=== PATIENT | male | born 1940 | race Caucasian/White ===

== ENCOUNTER 2020-12-28 15:08 | Outpatient (CLI) | payer MEDICARE, BC, SELFPAY ==
--- NOTE | ~2020-12-28 | XR_ITS ---
XR hip LT min 2V 12/28/2020 15:40 Indication: Left hip pain Procedure: 3 views left hip Comparison: No prior studies for comparison. 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 No acute fracture or traumatic malalignme nt. No foreign bodies. Surrounding soft tissues are unremarkable. Impression: 1: Moderate osteoarthritis of the left hip. Reviewed, dictated and finalized at location A. Impression: 1: Moderate osteoarthritis of the left hip.
== END 2020-12-28 15:09 | disposition home or self-care (01) ==
LOC: ANHIMG 15:20
PROVIDERS: PCP Physician Assistant; Visit Provider Physician Assistant
DX: M16.12 Unilateral primary osteoarthritis, left hip (principal)
CPT/HCPCS: 73502

== ENCOUNTER 2021-04-19 18:39 | Emergency (ER) | payer MEDICARE, BC, SELFPAY ==
--- NOTE | ~2021-04-19 | XR_ITS ---
EXAMINATION: XR chest 1V portable DATE: 04/19/2021 22:03 INDICATION: Fever. TECHNIQUE: frontal view of the chest was obtained. COMPARISON: Chest radiograph dated 11/09/[address] dated 06/18/2019 FINDINGS: Hyperexpansion of the lungs. Mild streaky opacities at the lung bases, left greater than right. No pl eural effusion or pneumothorax. The cardiomediastinal silhouette is normal. There are bridging osteop hytes at multiple levels in the spine, consistent with diffuse idiopathic skeletal hyperostosis (DISH ). 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 IMPRESSION: 1. Tracheal opacities at the lung bases, left greater than right most likely combination of atelectas is and bronchiectatic changes which are better appreciated on prior CT although pneumonia not absolut ryan excludable. Reviewed, dictated and finalized at location A. IMPRESSION: 1. Tracheal opacities at the lung bases, left greater than right most likely co mbination of atelectasis and bronchiectatic changes which are better appreciate d on prior CT although pneumonia not absolutely excludable.
[2021-04-19 18:49] VITALS: BP 177/83; PULSE 105; RESP 18; TEMP 37.5; O2SAT 96
[2021-04-19 20:25] VITALS: BP 197/81; PULSE 115; RESP 18; TEMP 37.5; O2SAT 98
--- NOTE | 2021-04-19 20:26 | PC.NURSE ---
called pt. jerzy White at [phone]. asked to come back to rm 14
[2021-04-19 21:34] VITALS: BP 154/74; PULSE 104; RESP 18; O2SAT 97
--- NOTE | 2021-04-19 22:00 | ED.SKABFB ---
HPI - Skin/Abscess/Foreign Bdy General Chief complaint: Skin/Abscess/Foreign Body Stated complaint: bumps to neck Time Seen by Provider: 04/19/21 21:11 Source: patient and RN notes reviewed Mode of arrival: ambulatory Limitations: no limitations History of Present Illness HPI narrative: This is an 81 year old male who presents for evaluation of insect bites. Patient states he noticed an insect bite to his right shoulder on Monday. He also noticed a bite to his neck today. He states he felt like he had a fever so he came to ER. He denies weakness, nausea, vomiting, sore throat, runny nose, chest pain, shortness of breath, diarrhea. He reports mild itching. He denies pain at site of bite. HE has not taken anything for. Related Data Home Medications Medication Instructions Recorded Confirmed atorvastatin 04/19/21 levothyroxine [Synthroid] 04/19/21 olmesartan 04/19/21 Allergies Allergy/AdvReac Type Severity Reaction Status Date / Time codeine AdvReac Mild Other Verified 04/19/21 18:51 Review of Systems Review of Systems: All systems reviewed & are unremarkable except as noted in HPI and below Constitutional: Constitutional: Denies chills and Reports fever(s) ENT: Denies dizziness, Denies nasal congestion and Denies sore throat Cardiovascular: Cardiovascular: Denies chest pain Respiratory: Respiratory: Denies cough and Denies dyspnea Gastrointestinal: Gastrointestinal: Denies abdominal pain, Denies nausea and Denies vomiting Genitourinary: Genitourinary: Denies hematuria and Denies dysuria Musculoskeletal: Musculoskeletal: Denies myalgias Neurologic: Denies headache(s) and Denies numbness PMFSH Past Medical History Medical History (Updated 04/19/21 @ 23:40 by Alvina Lynn MD) Hyperlipidemia Hypertension Surgical History Surgical History (Updated 04/19/21 @ 23:37 by Alvina Lynn MD) History of appendectomy History of cholecystectomy Social History Social History (Updated 04/19/21 @ 23:38 by Alvina Lynn MD) Smoking status: Former smoker Exam Const: General: no acute distress and alert Orientation/consciousness: patient oriented x3 HENMT: Head: normocephalic and atraumatic Face and sinus: face symmetric Mouth: Yes Normal oral and palatal mucosa present, Yes lip normal, Yes oropharynx normal and Yes moist mucous membranes Throat: posterior oropharynx normal, tonsils normal and uvula midline Eyes: EOM: EOMs intact bilaterally Neck: Neck: normal visual inspection Chest: Chest palpation & inspection: normal inspection of the chest Resp: Effort & Inspection: normal respiratory effort and no retractions Auscultation: clear to auscultation bilaterally Cardio: Rate: regular rate Rhythm: regular rhythm GI: Inspection: normal to inspection GI Palp: Yes Soft to palpation and No Tenderness to palpation present (GI) Auscultation: normal bowel sounds Skin: General skin exam: normal color Rashes: no rashes Neuro: General: patient oriented x3, moves all extremities and CN's II-XI intact bilaterally Course Reevaluation(s) Reevaluation #1: Yan states he is ready for discharge home. He denies any complaints. I discussed xray in which they were unable to rule out pneumonia. Will place on doxycycline and manager of case management return precautions. Date: 04/19/21 Time: 23:38 Vital Signs Vital signs: Vital Signs Temperature 99.5 F 04/19/21 18:49 Pulse Rate 105 H 04/19/21 18:49 Respiratory Rate 18 04/19/21 18:49 Blood Pressure 177/83 H 04/19/21 18:49 Pulse Oximetry 96 04/19/21 18:49 Temperature 99.5 F 04/20/21 00:00 Pulse Rate 93 04/20/21 00:00 Respiratory Rate 12 04/20/21 00:00 Blood Pressure 132/62 04/20/21 00:00 Pulse Oximetry 96 04/20/21 00:00 MDM - Skin/Abscess/Foreign Bdy Differential Diagnosis Differential diagnosis: Likely viral exanthem and insect bites Lab Data Attestation: I reviewed the patient's lab results. Lab
[2021-04-19 22:06] VITALS: TEMP 38.4
[2021-04-19 22:30] LABS: Add Urine Microscopic? YES; Appearance Urine Clear (Clear); Bilirubin Urine Negative (Negative); Blood Urine 1+ (Negative); Color Urine Yellow (Yellow); Glucose Urine UA Negative (Negative); Ketones Urine Negative (Negative); Leukocyte Esterase Ur Negative LEU/UL (Negative); Mucus Urine Rare /lpf; Nitrate Urine Negative (Negative); Protein Urine Negative (Negative); Specific Grav Ur 1.017 (1.001-1.035); Urobilinogen Urine Negative mg/dL (<2.0); WBC Urine 0-3 /hpf
[2021-04-19] MEDS: ACETAMINOPHEN 500 MG TABLET 1000 MG PO (22:46)
[2021-04-19 22:49] VITALS: BP 164/84; PULSE 108; RESP 18; O2SAT 98
[2021-04-20] VITALS: BP 132/62; PULSE 93; RESP 12; TEMP 37.5; O2SAT 96
== END 2021-04-20 | disposition home or self-care (01) ==
PROVIDERS: Emergency Provider General Practice; PCP Physician Assistant
DX: S41.051A Open bite of right shoulder, initial encounter (principal); S10.96XA Insect bite of unspecified part of neck, initial encounter; R50.9 Fever, unspecified; E78.5 Hyperlipidemia, unspecified; I10 Essential (primary) hypertension; Z87.891 Personal history of nicotine dependence; W57.XXXA Bitten or stung by nonvenomous insect and other nonvenomous arthropods, initial encounter
CPT/HCPCS: 71045; 81001; 99283; A9270

== ENCOUNTER → 2023-09-21 13:52 | Outpatient (CLI) | payer MEDICARE, BC, SELFPAY ==
--- NOTE | ~2023-09-21 | XR_ITS ---
XR chest 2V DATE: 09/21/2023 14:09 INDICATION: Cough. COPD. TECHNIQUE: PA and lateral views COMPARISON: 04/19/2021 portable AP chest 06/18/2019 CT thorax FINDINGS: Normal heart size. No hilar or mediastinal enlargement. The lungs are hyperinflated but marco a ar of infiltrate or consolidation. No pleural effusion or pulmonary vascular congestion or pneumothor ax is detected. Degenerative spurring of the thoracic and lumbar spine. 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 IMPRESSION: Bilateral hyperinflation; no active cardiopulmonary disease Reviewed, dictated and finalized at location L. NCE CLERK
== END ==
PROVIDERS: PCP Physician Assistant; Visit Provider Physician Assistant
DX: R05.9 Cough, unspecified (principal); J44.9 Chronic obstructive pulmonary disease, unspecified; R91.8 Other nonspecific abnormal finding of lung field
CPT/HCPCS: 71046

== ENCOUNTER 2025-01-10 08:08 | Emergency (ER) | payer MEDICARE, BC, SELFPAY ==
--- NOTE | ~2025-01-10 | CT_ITS ---
EXAMINATION: CT abdomen pelvis w con DATE: 01/10/2025 08:51 INDICATION: Rectal obstruction TECHNIQUE: Computed tomography (CT) of the abdomen and pelvis was performed with 100 mL Omnipaque-350 intravenous contrast. Automated exposure control and iterative reconstruction technique were employe d. The dose-length product was 555.60 mGy-cm. COMPARISON: CT dated 11/16/2017 FINDINGS: Emphysema with chronic scarring and mild bronchiectatic changes at the bilateral lung bases. Heart si ze is normal. No pericardial or pleural effusion. Chronic mild intra and extrahepatic biliary ductal dilation likely related to prior cholecystectomy. Subcentimeter hepatic cyst. Spleen, pancreas and ri ght adrenal gland are normal. Unchanged 5.2 cm relatively low density peripherally calcified lesion a t the left adrenal gland, likely related to an old hematoma/seroma. Bilateral renal cysts the largest on the right measuring up to 5.0 cm. There is moderate colonic diverticulosis with a sigmoid predomi nance and without adjacent inflammatory change to suggest diverticulitis. There is however prominent edematous wall thickening of the rectum and distal half the sigmoid colon consistent with a proctoco litis. No bowel obstruction. Calcified bladder stone. Prostatomegaly which is partially obscured by d ense metallic streak artifact from bilateral total hip arthroplasties. Small bilateral fat-containing inguinal hernias. No free intraperitoneal gas or fluid. No pathologically enlarged abdominal or pelv ic lymphadenopathy. Mild to moderate lumbar and lower thoracic spondylosis. IMPRESSION: 1. Proctocolitis which could be infectious or inflammatory in etiology. 2. Emphysema with chronic bibasilar atelectasis/scarring and mild bronchiectatic changes. 3. Diverticulosis. 4. Bladder stones. 5. Prostatomegaly. Reviewed, dictated and finalized at location A. IMPRESSION: 1. Proctocolitis which could be infectious or inflammatory in etiology. 2. Emphysema with chronic bibasilar atelectasis/scarring and mild bronchiectati c changes. 3. Diverticulosis. 4. Bladder stones. 5. Prostatomegaly.
[2025-01-10 08:12] VITALS: BP 144/77; PULSE 89; RESP 18; TEMP 36.5; O2SAT 96
--- OUTSIDE RECORDS SUMMARY | 2025-01-10 08:13 | XMS_ITS | Encounter Summary ---
Author Organization [facility] Care Team Providers Care Hiv Prevention Specialist Name Role Phone Sharri Dumont Primary Care Provider [phone] Encounter Details Date Type Department Care Team (Latest Contact Info) Description 11/20/2017 Orders Only [facility]INCON[facility] ProviderChristel MD [address] [place] [id number] Social History Tobacco Use Types Packs/Day Years Used Date Smoking Tobacco: Never Assessed Sex and Gender Information Value Date Recorded Sex Assigned at Not on file Legal Sex Male 8:42 PM [employer] Gender Identity Not on file Sexual Orientation Not on file documented as of this encounter Plan of Treatment Not on file documented as of this encounter Procedures Procedure Name Priority Date/Time Associated Diagnosis Comments SCAN - PATHOLOGY 11/22/2017 12:0 0 AM CDT SCAN - LABS 11/21/2017 12:00 AM CDT documented in this encounter Results * SCAN - PATHOLOGY (11/22/2017 12:00 AM CDT) Narrative 11/22/2017 12:00 AM CDT Ordered by an unspecified provider. Historical Provider Final Res ult * SCAN - LABS (11/21/2017 12:00 AM CDT) Narrative 11/21/2017 12:00 AM CDT Ordered by an unspecified provider. Historical Provider Final Res ult documented in this encounter Visit Diagnoses Not on filedocumented in this encounter Care Teams Hiv Prevention Specialist Relationship Specialty Start Date End Date Sharri Dumont PA [address] [facility] [address] [place] [address] PCP - General Internal Medicine 12/26/18 documented as of this encounter
--- OUTSIDE RECORDS SUMMARY | 2025-01-10 08:13 | XMS_ITS | Referral Summary ---
Author Organization [address] Address [address] [place] [id number] Care Team Providers Care Tie Layer Name Role Phone Sharri Dumont Primary Care Provider [phone]- [phone] Encounters Date Type Department Care Team Description 12/04/2024 1:00 PM CDT Office Visit [address] [phone] Sharri Dumont PA Medicare annual wellness visit, subsequent (Primary Dx); Hypertension associated with diabetes (HCC); Pulmonary emphysema, unspecified emphysema type (HCC); Acquired hypothyroidism; Type 2 diabetes mellitus with hyperlipidemia (HCC); BMI 26.0-26.9,adult 11/23/2024 Results Follow-Up [address] [place] [phone] Sharri Dumont PA 11/14/2024 Orders Only [address] [place] [phone] Sharri Dumont PA Essential hypertension (Primary Dx); Hypertension associated with diabetes (HCC); Acquired hypothyroidism; Type 2 diabetes mellitus with hyperlipidemia (HCC); Other fatigue; Encounter for Medicare annual wellness exam from Last 3 Months Allergies Active Allergy Reactions Criticality Noted Date Comments Codeine Phosphate Unknown 12/31/2018 Medications finasteride (PROSCAR) 5 mg tablet Take 1 tablet (5 mg total) by mouth nightly 022 Active multivitamin with minerals (MULTIPLE VITAMIN-MINERALS ORAL) Take 1 tablet by mouth daily Active metFORMIN (GLUCOPHAGE) 500 mg tabletIndications :Controlled type 2 diabetes mellitus with complication, without long-term current use of insulin (HCC) Take 1 tablet (500 mg total) by mouth daily with breakfast 024 2024 Active budesonide-formot Etienne (SYMBICORT) 160-4.5 mcg/actuation inhalerIndication s:Pulmonary emphysema, unspecified emphysema type (HCC) USE 2 INHALATIONS TWICE A DAY. RINSE MOUTH WITH WATER AFTER USE, DO NOT SWALLOW 30.6 g 3 024 Active albuterol HFA (PROVENTIL HFA,VENTOLIN HFA,PROAIR HFA) 90 mcg/actuation inhalerIndication s:Pulmonary emphysema, unspecified emphysema type (HCC) Inhale 2 puffs every 6 (six) hours as needed for wheezing Active olmesartan (BENICAR) 40 mg tabletIndications :Essential hypertension TAKE 1 TABLET DAILY 100 tablet 1 025 Active atorvastatin (LIPITOR) 10 mg tabletIndications :Mixed hyperlipidemia TAKE 1 TABLET DAILY 100 tablet 1 025 Active levothyroxine (SYNTHROID) 75 mcg tablet TAKE 1 TABLET DAILY 90 tablet 3 025 Active olmesartan (BENICAR) 40 mg tabletIndications :Essential hypertension TAKE 1 TABLET DAILY 90 tablet 3 024 2024 Discontinued atorvastatin (LIPITOR) 10 mg tabletIndications :Mixed hyperlipidemia Take 1 tablet (10 mg total) by mouth daily 024 2024 Discontinued levothyroxine (SYNTHROID) 75 mcg tablet TAKE 1 TABLET DAILY 100 tablet 025 2024 Discontinued Active Problems Problem Noted Date Diagnosed Date Medicare annual wellness visit, subsequent 12/16 Assessment & Plan (12/16/2024 12:04 AM CDT): Encouraged healthy lifestyle, good nutrition and exercise. Encouraged Calcium and Vitamin D and weight bearing exercise for bone health. Reviewed immunizations. Reviewed age appropirate screenings. Medicare Wellness Documentation is completed within the chart Hypertension associated with diabetes 06/16/2024 Assessment & Plan (12/16/2024 12:04 AM CDT): Bp is stable/in acceptable range for any co-morbidities. Encouraged to limit sodium intake and exercise for weight control. Continue olmesartan 40 BMI 26.0-26.9,adult 06/03/2024 Assessment & Plan (12/16/2024 12:04 AM CDT): Weight/BMI is in healthy range. Continue healthy lifestyle to maintain. Assessment & Plan (06/03/2024 1:36 PM CDT): Weight/BMI is in healthy range. Continue healthy lifestyle to maintain. Cataracts, bilateral 07/07/2023 Assessment & Plan (07/07/2023 12:48 PM CDT): Patient has bilateral cataracts. Planning surgery with Dr. Rashid Fry of [facility]. Scheduled for July 20 and August 21. Patient has tolerated surgery in the past and should do fine with this procedure. Emphysema of lung 07/07/2021 Assessment & Plan (12/16/2024 12:04 AM CDT): Continue Symbicort and albuterol PRN Assessment & Plan (06/16/2024 4:16 PM CDT): Patient has COPD. Continue with Symbicort and albuterol p.r.n.. Seems to be breathing well Assessment & Plan (08/10/2023 11:09 PM [employer]): COPD is stable. Continue the Symbicort and p.r.n. albuterol Assessment & Plan (07/07/2023 12:48 PM CDT): COPD is stable. Continue with albuterol p.r.n. and Symbicort as instructed Assessment & Plan (01/17/2023 9:47 PM CDT): Continue Symbicort and albuterol p.r.n. Assessment & Plan (07/20/2022 1:54 PM [employer]): Continue Symbicort. Assessment & Plan (07/10/2021 8:36 PM CDT): Continue Symbicort. History of total right hip arthroplasty 12/29/19 Overview (12/28/2020): 2014 History of colon polyps 12/30/2018 Overview (07/10/2021): 01/2018 - Dr. Rm at [facility]. Polyp. Repeat 2020. Assessment & Plan (07/20/2022 1:53 PM [employer]): 01/2018 - Dr. Rm at [facility]. Polyp. Repeat 2020. 2020-- Dr. Rm -- will have to request from [facility]. Assessment & Plan (07/10/2021 8:34 PM CDT): 01/2018 - Dr. Rm at [facility]. Polyp. Repeat 2020. Prefers to go to Dr. Brandt at [place]. Referral is in so he can contact our office at his convenience. Assessment & Plan (01/17/2021 6:47 PM CDT): Due to repeat screening. Refer to Dr. Brandt as patients just saw him. Assessment & Plan (08/09/2020 2:04 PM [employer]): Due to repeat in 01/2021 Type 2 diabetes mellitus with hyperlipidemia Assessment & Plan (12/16/2024 12:03 AM CDT): Stressed importance of continued A1c control to minimize the long-term effects of diabetes. Bring accuchecks to office when instructed to do so. Check A1c about every 3-6 months. Take medication as prescribed. Get annual eye exam. Encouraged RAFI/Statin if able to tolerate. Encouraged weight control and encouraged diabetic diet and exercise. Encouraged patient to follow low fat/low chol diet like the Mediterranean diet. Increase good fats in the diet. Increase exercise. Monitor labs as needed. Continue atorvastatin 10 continue metformin 501 daily Assessment & Plan (06/16/2024 4:20 PM CDT): Encouraged patient to follow low fat/low chol diet like the Mediterranean diet. Increase good fats in the diet. Increase exercise. Monitor labs as needed. Continue atorvastatin 10 Stressed importance of continued A1c control to minimize the long-term effects of diabetes. Bring accuchecks to office when instructed to do so. Check A1c about every 3-6 months. Take medication as prescribed. Get annual eye exam. Encouraged RAFI/Statin if able to tolerate. Encouraged weight control and encouraged diabetic diet and exercise. Continue metformin 501 daily Assessment & Plan (08/10/2023 11:09 PM [employer]): Encouraged patient to follow low fat/low chol diet like the Mediterranean diet. Increase good fats in the diet. Increase exercise. Monitor labs as needed. Continue atorvastatin 10 Assessment & Plan (07/07/2023 12:47 PM CDT): Encouraged patient to follow low fat/low chol diet like the Mediterranean diet. Increase good fats in the diet. Increase exercise. Monitor labs as needed. Continue atorvastatin 10 daily Assessment & Plan (01/17/2023 9:47 PM CDT): Encouraged patient to follow low fat/low chol diet like the Mediterranean diet. Increase good fats in the diet. Increase exercise. Monitor labs as needed. Continue atorvastatin Assessment & Plan (07/20/2022 1:53 PM [employer]): Encouraged patient to follow low fat/low chol diet like the Mediterranean diet. Increase good fats in the diet. Increase exercise. Monitor labs as needed. Continue atorvastatin Assessment & Plan (01/31/2022 11:15 PM CDT): Encouraged patient to follow low fat/low chol diet like the Mediterranean diet. Increase good fats in the diet. Increase exercise. Monitor labs as needed. Continue atorvastatin Assessment & Plan (07/10/2021 8:34 PM CDT): Encouraged patient to follow fat/low chol diet like the Mediterranean diet. Increase good fats in the diet. Increase exercise. Monitor labs as needed. Continue atorvastatin Assessment & Plan (01/17/2021 6:46 PM CDT): Encouraged patient to follow fat/low chol diet like the Mediterranean diet. Increase good fats in the diet. Increase exercise. Monitor labs as needed. Continue statin Assessment & Plan (08/09/2020 2:03 PM [employer]): Encouraged patient to follow fat/low chol diet like the Mediterranean diet. Increase good fats in the diet. Increase exercise. Monitor labs as needed. Continue atorvastatin Assessment & Plan (03/08/2020 5:30 PM CDT): Encouraged patient to continue low fat/low chol diet. Continue exercise. Increase good fats in the diet. Monitor labs as needed. D Continue statin Assessment & Plan (06/08/2019 11:27 PM CDT): Encouraged patient to continue low fat/low chol diet. Continue exercise. Increase good fats in the diet. Monitor labs as needed. Continue statin Assessment & Plan (01/13/2019 10:47 PM CDT): Encouraged patient to continue low fat/low chol diet. Continue exercise. Increase good fats in the diet. Monitor labs as needed. Continue statin Acquired hypothyroidism 12/30/2018 Assessment & Plan (12/16/2024 12:04 AM CDT): Continue levothyroxine. 75 mcg Monitor labs. Assessment & Plan (06/16/2024 4:16 PM CDT): Continue levothyroxine 75 mcg. Monitor labs. Assessment & Plan (08/10/2023 11:09 PM [employer]): Continue levothyroxine. Monitor labs. Assessment & Plan (07/07/2023 12:48 PM CDT): TSH is stable. Continue levothyroxine 75 mcg daily Assessment & Plan (01/17/2023 9:47 PM CDT): Continue levothyroxine. Monitor labs. Assessment & Plan (07/20/2022 1:53 PM [employer]): Continue levothyroxine. Monitor labs. Assessment & Plan (01/31/2022 11:15 PM CDT): Continue levothyroxine. Monitor labs. Assessment & Plan (07/10/2021 8:35 PM CDT): Continue levothyroxine. Monitor labs. Assessment & Plan (01/17/2021 6:46 PM CDT): Continue levothyroxine. Monitor labs Assessment & Plan (08/09/2020 2:03 PM [employer]): Continue levothyroxine. Labs are stable. Assessment & Plan (03/08/2020 5:30 PM CDT): Continue levothyroxine Assessment & Plan (06/08/2019 11:27 PM CDT): Stable with levo. Check labs prior to next visit Assessment & Plan (01/13/2019 10:47 PM CDT): Continue levothyroxine Multiple lung nodules 12/30/2018 Overview (02/26/2020): 11/2017 [facility]- nodules found during ER visit. 11/2018 - [facility] - multiple (B) nodules, probably benign. Repeat 05/2019 -[facility] -- stable lung nodule Assessment & Plan (06/08/2019 11:28 PM CDT): Due to repeat CT lung nodules. Will order. Assessment & Plan (01/13/2019 10:45 PM CDT): 11/2017 CT [facility]- nodules found during ER visit. 11/2018 - [facility] - multiple (B) nodules, probably benign. Repeat 05/2019 Resolved Problems Problem Noted Date Diagnosed Date Resolved Date SOB (shortness of breath) 12/16/2024 Other emphysema 12/16/2024 12/16/2024 COPD exacerbation 10/02/2023 06/16/2024 Assessment & Plan (10/02/2023 8:25 PM [employer]): Patient had a COPD exacerbation. Required an ER visit. Was started on antibiotics and steroid pack. Symptoms have improved almost to full resolution. Continue with inhalers as needed. Follow-up if symptoms worsen or return. Will get a chest x- ray just to confirm complete resolution due to multiple illnesses in the community Medicare annual wellness visit, subsequent 08/10/2023 06/16/2024 Assessment & Plan (08/10/2023 11:12 PM [employer]): Encouraged healthy lifestyle, good nutrition and exercise. Encouraged Calcium and Vitamin D and weight bearing exercise for bone health. Reviewed immunizations. Reviewed age appropirate screenings. Medicare Wellness Documentation is completed within the chart Fatigue 08/10/2023 12/16/2024 Assessment & Plan (08/10/2023 11:12 PM [employer]): Probably multifactorial. Check labs and followup to re-evaluate BMI 29.0-29.9,adult 07/07/2023 06/03/20 Assessment & Plan (10/02/2023 8:22 PM [employer]): Weight/BMI is in healthy range. Continue healthy lifestyle to maintain. Assessment & Plan (07/24/2023 11:21 AM [employer]): Weight/BMI is in healthy range. Continue healthy lifestyle to maintain. Assessment & Plan (07/07/2023 12:48 PM CDT): Weight/BMI is in healthy range. Continue healthy lifestyle to maintain. Need for immunization against influenza 07/07/2023 06/16/2024 Assessment & Plan (07/07/2023 12:52 PM CDT): Flu vaccine updated in the office Encounter for pre-operative examination 07/07/2023 06/16/2024 Assessment & Plan (07/07/2023 12:53 PM CDT): Reviewed with patient inherent risks of surgery. Advised cataract surgeries usually go well and the cardiac risk is low. He just underwent a hip replacement last year so I suspect he will do fine. Follow-up with Ophthalmology as indicated and use drops as instructed. My staff will fax over the clearance form BMI 28.0-28.9,adult 01/17/2023 07/07/20 Assessment & Plan (01/17/2023 11:10 AM CDT): Weight/BMI is in healthy range. Continue healthy lifestyle to maintain. Respiratory tract congestion with cough 01/17/2023 07/07/2023 Assessment & Plan (01/17/2023 9:48 PM CDT): Patient has had persistent respiratory tract infection symptoms. He is still congested and hoarse. Will go ahead and start antibiotic for coverage. Augmentin sent to pharmacy. If symptoms do not improve and resolve he is to follow up for chest x-ray. He is in agreement with the plan Medicare annual wellness visit, subsequent 07/20/2022 01/17/2023 Assessment & Plan (07/20/2022 1:54 PM [employer]): Encouraged healthy lifestyle, good nutrition and exercise. Encouraged Calcium and Vitamin D and weight bearing exercise for bone health. Reviewed immunizations. Reviewed age appropirate screenings. Medicare Wellness Documentation is completed within the chart Need for vaccination 07/20/2022 023 Assessment & Plan (07/20/2022 1:54 PM [employer]): Flu vaccine updated in the office today BMI 28.0-28.9,adult 01/17/2022 01/18/20 23 Assessment & Plan (07/20/2022 1:54 PM [employer]): Weight/BMI is in healthy range. Continue healthy lifestyle to maintain. Assessment & Plan (01/17/2022 3:14 PM CDT): Weight/BMI is in healthy range. Continue healthy lifestyle to maintain. Flank pain, acute 09/07/2021 07/07/2023 Assessment & Plan (09/07/2021 7:19 PM [employer]): Will evaluate further with xrays, will notify him of results as available Advised no driving for six hours after taking muscle relaxer Advised f/u in next week if not improving, sooner if worsening BMI 27.0-27.9,adult 09/07/2021 01/18/20 22 BMI 28.0-28.9,adult 07/07/2021 01/18/20 22 Assessment & Plan (07/07/2021 2:39 PM CDT): Weight/BMI is in healthy range. Continue healthy lifestyle to maintain. Medicare annual wellness visit, subsequent 07/07/2021 01/31/2022 Assessment & Plan (07/10/2021 8:35 PM CDT): Encouraged healthy lifestyle, good nutrition and exercise. Encouraged Calcium and Vitamin D and weight bearing exercise for bone health. Reviewed immunizations. Reviewed age appropirate screenings. Medicare Wellness Documentation is completed within the chart Hip pain 01/17/2021 01/17/2023 Assessment & Plan (01/17/2021 6:45 PM CDT): Check hip xray. May need referral back to Ortho. BMI 28.0-28.9,adult 12/28/2020 07/07/20 21 Assessment & Plan (12/28/2020 10:51 AM CDT): Weight/BMI is in healthy range. Continue healthy lifestyle to maintain. Flu vaccine need 08/09/2020 07/07/2023 Assessment & Plan (07/20/2022 1:53 PM [employer]): Flu vaccine updated in the office today Assessment & Plan (07/10/2021 8:35 PM CDT): Vaccine updated in office today Assessment & Plan (08/09/2020 2:04 PM [employer]): Updated in office today Other emphysema ([facility]/HCC) 03/08/2020 Assessment & Plan (07/10/2021 8:35 PM CDT): Continue Symbicort. Assessment & Plan (01/17/2021 6:46 PM CDT): Breathing without difficulty. monitor Assessment & Plan (08/09/2020 2:03 PM [employer]): Continue Symbicort. States never has break thru sxs. Assessment & Plan (03/08/2020 5:37 PM CDT): Encouraged daily use of the Symbicort. He prefers just prn Medicare annual wellness visit, subsequent 02/26/2020 06/30/2020 Assessment & Plan (03/08/2020 5:31 PM CDT): Encouraged healthy lifestyle, good nutrition and exercise. Encouraged Calcium and Vitamin D and weight bearing exercise for bone health. Reviewed immunizations Reviewed age appropirate screenings. Documentation is on the chart Need for 23-polyvalent pneum ococcal polysaccharide vaccine 02/26/2020 06/30/2020 Assessment & Plan (03/08/2020 5:31 PM CDT): Updated in office. Murmur 02/26/2020 02/26/2020 Need for immunization against influenza 06/04/2019 03/08/2020 Assessment & Plan (06/08/2019 11:29 PM CDT): Updated in office BMI 28.0-28.9,adult 12/31/2018 12/29/19 21 Assessment & Plan (08/09/2020 2:03 PM [employer]): Weight/BMI is in healthy range. Continue healthy lifestyle to maintain. Assessment & Plan (02/26/2020 9:04 AM CDT): Obesity is unchanged. Discussed the patient's BMI. The BMI is above average. BMI management plan is completed. BMI Follow-up includes: nutrition counseling, exercise counseling and education provided. Assessment & Plan (06/08/2019 11:27 PM CDT): Weight/BMI is in healthy range. Continue healthy lifestyle to maintain. Pre-diabetes 12/30/2018 01/25/2024 Assessment & Plan (08/10/2023 11:09 PM [employer]): Pre-diabetes/hyperglycemia is a precursor to Dm. Stressed importance of working on diet (decrease your simple sugars and one carbohydrate with each meal) and increase you exercise to achieve weight loss and this will help prevent you from progressing to diabetes. Assessment & Plan (07/07/2023 12:47 PM CDT): Pre-diabetes/hyperglycemia is a precursor to Dm. Stressed importance of working on diet (decrease your simple sugars and one carbohydrate with each meal) and increase you exercise to achieve weight loss and this will help prevent you from progressing to diabetes. Assessment & Plan (01/17/2023 9:46 PM CDT): Pre-diabetes/hyperglycemia is a precursor to Dm. Stressed importance of working on diet (decrease your simple sugars and one carbohydrate with each meal) and increase you exercise to achieve weight loss and this will help prevent you from progressing to diabetes. Assessment & Plan (07/20/2022 1:53 PM [employer]): Pre-diabetes/hyperglycemia is a precursor to Dm. Stressed importance of working on diet (decrease your simple sugars and one carbohydrate with each meal) and increase you exercise to achieve weight loss and this will help prevent you from progressing to diabetes. Assessment & Plan (01/31/2022 11:14 PM CDT): Pre-diabetes/hyperglycemia is a precursor to Dm. Stressed importance of working on diet (decrease your simple sugars and one carbohydrate with each meal) and increase you exercise to achieve weight loss and this will help prevent you from progressing to diabetes. Assessment & Plan (07/10/2021 8:34 PM CDT): Pre-diabetes/hyperglycemia is a precursor to Dm. Stressed importance of working on diet (decrease your simple sugars and one carbohydrate with each meal) and increase you exercise to achieve weight loss and this will help prevent you from progressing to diabetes. Assessment & Plan (01/17/2021 6:46 PM CDT): Pre-diabetes/hyperglycemia is a precursor to Dm. Stressed importance of working on diet (decrease your simple sugars and one carbohydrate with each meal) and increase you exercise to achieve weight loss and this will help prevent you from progressing to diabetes. Assessment & Plan (08/09/2020 2:03 PM [employer]): Pre-diabetes is a precursor to Dm. Stressed importance of working on diet (decrease your simple sugars and one carbohydrate with each meal) and increase you exercise to achieve weight loss and this will help prevent you from progressing to diabetes. Assessment & Plan (03/08/2020 5:30 PM CDT): Pre-diabetes is a precursor to Dm. Stressed importance of working on diet (decrease your simple sugars and one carbohydrate with each meal) and increase you exercise to achieve weight loss and this will help prevent you from progressing to diabetes. Assessment & Plan (06/20/2019 10:20 PM CDT): Pre-diabetes is a precursor to Dm. Stressed importance of working on diet (decrease your simple sugars and one carbohydrate with each meal) and increase you exercise to achieve weight loss and this will help prevent you from progressing to diabetes. Assessment & Plan (06/08/2019 11:29 PM CDT): Pre-diabetes is a precursor to Dm. Stressed importance of working on diet (decrease your simple sugars and one carbohydrate with each meal) and increase you exercise to achieve weight loss and this will help prevent you from progressing to diabetes. Assessment & Plan (01/13/2019 10:47 PM CDT): Pre-diabetes is a precursor to Dm. Stressed importance of working on diet (decrease your simple sugars and one carbohydrate with each meal) and increase you exercise to achieve weight loss and this will help prevent you from progressing to diabetes. Essential hypertension 12/30/201812/16 Assessment & Plan (06/16/2024 4:16 PM CDT): Bp is stable/in acceptable range for any co-morbidities. Encouraged to limit sodium intake and exercise for weight control. Continue olmesartan 40 Assessment & Plan (08/10/2023 11:09 PM [employer]): Bp is stable/in acceptable range for any co-morbidities. Encouraged to limit sodium intake and exercise for weight control. Continue olmesartan 40 Assessment & Plan (07/07/2023 12:47 PM CDT): Bp is stable/in acceptable range for any co-morbidities. Encouraged to limit sodium intake and exercise for weight control. Continue olmesartan 40 daily Assessment & Plan (01/17/2023 9:47 PM CDT): Bp is stable/in acceptable range for any co-morbidities. Encouraged to limit sodium intake and exercise for weight control. Continue olmesartan Assessment & Plan (07/20/2022 1:53 PM [employer]): Bp is stable/in acceptable range for any co-morbidities. Encouraged to limit sodium intake and exercise for weight control. Continue olmesartan Assessment & Plan (01/31/2022 11:14 PM CDT): Bp is stable/in acceptable range for any co-morbidities. Encouraged to limit sodium intake and exercise for weight control. Continue olmesartan Assessment & Plan (07/10/2021 8:34 PM CDT): Bp is stable/in acceptable range for any co-morbidities. Encouraged to limit sodium intake and exercise for weight control. Continue olmesartan Assessment & Plan (01/17/2021 6:46 PM CDT): Bp is stable/in acceptable range for any co-morbidities. Encouraged to limit sodium intake and exercise for weight control. Continue olmesartan Assessment & Plan (08/09/2020 2:03 PM [employer]): Bp is stable/in acceptable range for any co-morbidities. Encouraged to limit sodium intake and exercise for weight control. Continue benicar Assessment & Plan (03/08/2020 5:30 PM CDT): Bp is stable/in acceptable range for any co-morbidities. Encouraged to limit sodium intake and exercise for weight control. Continue olemsartan Assessment & Plan (06/08/2019 11:27 PM CDT): Bp is stable/in acceptable range for any co-morbidities. Encouraged to limit sodium intake and exercise for weight control. Stable with benicar Assessment & Plan (01/13/2019 10:47 PM CDT): Bp is stable/in acceptable range for any co-morbidities. Encouraged to limit sodium intake and exercise for weight control. Immunizations Immunization Administration Dates Next Due Influenza, Quadrivalent, Hig h Dose, Preservative Free, Intrr 07/07/2023,07/20/2022,07/07/2021,07/01 Influenza, Quadrivalent, Spl it, Intramuscular 06/11/2016 Influenza, Quadrivalent, Spl it, Preservative Free, Intramuscular 06/17/2015 Influenza, Trivalent, High D ose, Split, Preservative Free, Intramuscular 06/19/2024,06/04/2019,07/03/2018,06/23,06/23/2016 Influenza, Trivalent, IM (MDV) 06/04/2014,2012,07/03/2012 Influenza, Unspecified 06/04/2019,2017,06/23/2017,06/23,06/11/2016,06/17/2015,06/04/2014 ,06/17/2013,07/03/2012 Pneumococcal Conjugate PCV 13 08/29/2018, 017 Pneumococcal Polysaccharide PPV23 02/26/2020 ZOSTER LIVE 10/29/2012 Social History Tobacco Use Types Packs/Day Years Used Date Smoking Tobacco: Former Smokeless Tobacco: Never Tobacco Cessation:Counseling Given: Not Answered Alcohol Use Standard Drinks/Week Comments Never 0 (1 standard drink = 0.6 oz pur e alcohol) AUDIT-C Answer Date Recorded Q1: How often do you have a drink containing alcohol? Never 12/04/2024 Q2: How many drinks containi ng alcohol do you have on a typical day when you are drinking? Patient does not drink Q3: How often do you have si x or more drinks on one occasion? Never 12/04/2024 PHQ-2 Answer Date Recorded PHQ-2 Total Score (If total score is 3 or more points, staff should administer the PHQ-9) 0 12/04/2024 Sex and Gender Information Value Date Recorded Sex Assigned at Not on file Legal Sex Male 8:42 PM [employer]ILRO[employer] Gender Identity Not on file Sexual Orientation Not on file Occupation Industry Job Start Date Job End Date Retired Not on file Not on file Not on file Last Filed Vital Signs Vital Sign Reading Time Taken Comments Blood Pressure 126/62 12/04/2024 1:01 PM CDT Pulse 79 12/04/2024 1:01 PM CDT Temperature 36.4 C (97.6 F) 12/04/2024 1:01 PM CDT Respiratory Rate - - Oxygen Saturation 94% 12/04/2024 1:01 PM CDT Inhaled Oxygen Concentration - - Weight 79.7 kg (175 lb 11.2 oz) 12/04/2024 1:01 PM CDT Height 172.7 cm (5' 8 ) 12/04/2024 1:01 PM CDT Body Mass Index 26.72 12/04/2024 1:01 PM CDT Plan of Treatment Not on file Procedures Procedure Name Priority Date/Time Associated Diagnosis Comments TSH Routine 11/22/2024 9:14 AM CDT Acquired hypothyroidism Other fatigue Encounter for Medicare annual wellness exam CBC WITH AUTO DIFFERENTIAL Routine 11/22/2024 9:14 AM CDT Other fatigue Encounter for Medicare annual wellness exam LIPID PANEL Routine 11/22/2024 9:14 AM CDT Type 2 diabetes mellitus with hyperlipidemia (HCC) Encounter for Medicare annual wellness exam HEMOGLOBIN A1C Routine 11/22/2024 9:14 AM CDT Type 2 diabetes mellitus with hyperlipidemia (HCC) Encounter for Medicare annual wellness exam COMPREHENSIVE METABOLIC PANEL Routine 11/22/2024 9:14 AM CDT Hypertension associated with diabetes (HCC) Type 2 diabetes mellitus with hyperlipidemia (HCC) Encounter for Medicare annual wellness exam ALBUMIN CREATININE RATIO, URINE Routine 11/22/2024 9:14 AM CDT Type 2 diabetes mellitus with hyperlipidemia (HCC) Encounter for Medicare annual wellness exam HM COLONOSCOPY Routine 03/03/2021 from Last 3 Months or Most Recently Relevant to Health Maintenance Results * (ABNORMAL) CBC with auto differential (11/22/2024 9:14 AM CDT) Pathologist [facility] WBC 5.0 3.8 - 10.8 Thousand/u L [facility] RBC, POC 3.75(L) 4.20 - 5.80 Million/uL [facility] Hgb 13.2 13.2 - 17.1 g/dL [facility] Hct 37.8(L) 38.5 - 50.0 % [facility] MCV 100.8(H) 80.0 - 100.0 fL [facility] MCH 35.2(H) 27.0 - 33.0 pg [facility] MCHC 34.9 32.0 - 36.0 g/dL [facility] Comment: For adults, a slight decrease in the calculated MCHC value (in the range of 30 to 32 g/dL) is most likely not clinically significant; however, it should be interpreted with caution in correlation with other red cell parameters and the patient's clinical condition. Rdw 12.5 11.0 - 15.0 % [facility] Platelets 165 140 - 400 Thousand/u L [facility] MPV 10.8 7.5 - 12.5 fL [facility] Neutrophils, abs 3,080 1,500 - 7,800 cells/uL [facility] Lymphocytes, abs 1,305 850 - 3,900 cells/uL [facility] Monocyte abs 375 200 - 950 cells/uL [facility] Eosinophils, abs 190 15 - 500 cells/uL [facility] Basophils, abs 50 0 - 200 cells/uL [facility] Neutrophils 61.6 % [facility] Lymphocyte pct 26.1 % [facility] Monocytes 7.5 % [facility] Eosinophils 3.8 % [facility] Basophils 1.0 % [facility] Blood 11/22/2024 9:14 AM CDT 11/22/2024 9:15 AM CDT Narrative [facility] - 11/23/2024 2:47 AM CDT FASTING:YES FASTING: YES Sharri RADER LAB BLOOD ORDERABLES Final Result [facility] [address] [place] [address] * Albumin Creatinine Ratio, Urine (11/22/2024 9:14 AM CDT) Creatinine, ur 129 20 - 320 mg/dL [facility] Microalbumin, ur 1.0 See Note: mg/dL [facility] Comment: Reference Range: Reference Range Not established Microalbumin/creat ratio 8 <30 mg/g creat [facility] Comment: The ADA defines abnormalities in albumin excretion as follows: Albuminuria Category Result (mg/g creatinine) Normal to Mildly increased <30 Moderately increased 30-299 Severely increased > OR = 300 The ADA recommends that at least two of three specimens collected within a 3-6 month period be abnormal before considering a patient to be within a diagnostic category. Urine 11/22/2024 9:14 AM CDT 11/22/2024 9:15 AM CDT Narrative [facility] - 11/23/2024 2:47 AM CDT FASTING:YES FASTING: YES Sharri RADER LAB URINE ORDERABLES Final Result [facility] [address] [address] * TSH (11/22/2024 9:14 AM CDT) TSH 2.13 0.40 - 4.50 mIU/L [facility] Blood 11/22/2024 9:14 AM CDT 11/22/2024 9:15 AM CDT Narrative [facility] - 11/23/2024 2:47 AM CDT FASTING:YES FASTING: YES us Sharri RADER LAB BLOOD ORDERABLES Final Result Performing Organization Address [facility] de Phone Number [facility] [address] [place] [address] * (ABNORMAL) Hemoglobin A1c (11/22/2024 9:14 AM CDT) Hgb A1C 6.3(H) <5.7 % of total Hgb [facility] Comment: For someone without known diabetes, a hemoglobin A1c value between 5.7% and 6.4% is consistent with prediabetes and should be confirmed with a follow-up test. For someone with known diabetes, a value <7% indicates that their diabetes is well controlled. A1c targets should be individualized based on duration of diabetes, age, comorbid conditions, and other considerations. This assay result is consistent with an increased risk of diabetes. Currently, no consensus exists regarding use of hemoglobin A1c for diagnosis of diabetes for children. Blood 11/22/2024 9:14 AM CDT 11/22/2024 9:15 AM CDT Narrative [facility] - 11/23/2024 2:47 AM CDT FASTING:YES FASTING: YES Sharri RADER LAB BLOOD ORDERABLES Final Result Performing Organization Address [facility] de Phone Number [facility] [address] [place] [address] * Lipid panel (11/22/2024 9:14 AM CDT) Cholesterol 145 <200 mg/dL [facility] HDL 50 > OR = 40 mg/dL [facility] Triglycerides 93 <150 mg/dL [facility] LDL 77 mg/dL (calc) [facility] Comment: Reference range: <100 Desirable range <100 mg/dL for primary prevention; <70 mg/dL for patients with CHD or diabetic patients with > or = 2 CHD risk factors. LDL-C is now calculated using the Maikel calculation, which is a validated novel method providing better accuracy than the Friedewald equation in the estimation of LDL-C. Justyn SAGASTUME et al. LELA. 2013;310(19): 7205-9563 (http://education.[employer]/faq/OLQ833) Chol/HDL ratio 2.9 <5.0 (calc) [facility] Non-HDL, (LDL+VLDL) 95 <130 mg/dL (calc) [facility] Comment: For patients with diabetes plus 1 major ASCVD risk factor, treating to a non-HDL-C goal of <100 mg/dL (LDL-C of <70 mg/dL) is considered a therapeutic option. Blood 11/22/2024 9:14 AM CDT 11/22/2024 9:15 AM CDT Narrative [facility] - 11/23/2024 2:47 AM CDT FASTING:YES FASTING: YES Sharri RADER LAB BLOOD ORDERABLES Final Result [facility] [address] [place] [address] * (ABNORMAL) Comprehensive metabolic panel (11/22/2024 9:14 AM CDT) [facility] Glucose 125(H) 65 - 99 mg/dL [facility] Comment: Fasting reference interval For someone without known diabetes, a glucose value between 100 and 125 mg/dL is consistent with prediabetes and should be confirmed with a follow-up test. BUN 24 7 - 25 mg/dL [facility] Creatinine 1.19 0.70 - 1.22 mg/dL [facility] eGFR 59(L) > OR = 60 mL/min/1.7 3m2 [facility] BUN/creat ratio SEE NOTE: 6 - 22 (calc) [facility] Comment: Not Reported: BUN and Creatinine are within reference range. Sodium 142 135 - 146 mmol/L [facility] Potassium, pl 4.8 3.5 - 5.3 mmol/L [facility] Chloride 107 98 - 110 mmol/L [facility] CO2 29 20 - 32 mmol/L [facility] Calcium 9.5 8.6 - 10.3 mg/dL [facility] Protein, sr 7.2 6.1 - 8.1 g/dL [facility] Albumin 4.4 3.6 - 5.1 g/dL [facility] GLOBULIN 2.8 1.9 - 3.7 g/dL (calc) [facility] Alb/glob ratio 1.6 1.0 - 2.5 (calc) [facility] Bilirubin, total 0.7 0.2 - 1.2 mg/dL [facility] Alk phos 58 35 - 144 U/L [facility] AST 17 10 - 35 U/L [facility] ALT (SGPT) 14 9 - 46 U/L [facility] Blood 11/22/2024 9:14 AM CDT 11/22/2024 9:15 AM CDT Narrative [facility] - 11/23/2024 2:47 AM CDT FASTING:YES FASTING: YES Sharri RADER LAB BLOOD ORDERABLES Final Result [facility] [address] [place] [address] * (ABNORMAL) COLONOSCOPY (03/03/2021) Ernesto Rm MD HEALTH MAINTENANCE Edited Result - Final from Last 3 Months or Most Recently Relevant to Health Maintenance Insurance MEDICARE MEDICARE [facility] OOS Care Teams Tie Layer Relationship Specialty Start Date End Date Sharri Dumont PA [address] [place] [address] PCP - General Internal Medicine 12/26/18
--- OUTSIDE RECORDS SUMMARY | 2025-01-10 08:13 | XMS_ITS | Clinical Summary ---
Author Organization [facility] Address formerly [facility] [place] [address] Care Team Providers Care Central Aisle Cashier Name Role Phone Sharri Dumont Primary Care Provider [phone] Allergies Active Allergy Reactions Criticality Noted Date Comments Codeine Nausea and Vomiting 12/31/2018 [place] like stomach was burning and vomitted Medications albuterol sulfate HFA 108 (90 Base) MCG/ACT inhalerIndicatio ns:Shortness of breath INHALE 2 PUFFS EVERY 4 HOURS NEEDED FOR WHEEZING OR SHORTNESS OF BREATH 1 Active atorvastatin (LIPITOR) 10 MG tabletIndication s:Hyperlipidemia Take 1 tablet (10 mg total) by mouth daily. Indications: High Amount of Fats in the Blood 2 Active SYNTHROID 75 MCG tabletIndication s:Hypothyroidism Take 1 tablet (75 mcg total) by mouth every morning. Indications: Underactive Thyroid 2 Active olmesartan 40 MG TabIndications:H ypertension Take 1 tablet (40 mg total) by mouth daily. Indications: High Blood Pressure Disorder 2 Active multi vitamin/minerals (THERA-M ENHANCED) tabletIndication s:Supplement Take 1 tablet by mouth daily. Indications: Supplement Active finasteride (PROSCAR) 5 MG tabletIndication s:BPH Take 1 tablet (5 mg total) by mouth nightly. Indications: BPH 2 Active budesonide-formo terol (SYMBICORT) 160-4.5 MCG/ACT inhalerIndicatio ns:COPD, surveillance Inhale 2 puffs into the lungs daily. Indications: COPD, surveillance Active Active Problems Problem Noted Date Diagnosed Date Status post total replacement of left hip 2022 Immunizations Immunization Administration Dates Next Due Fluzone High Dose - >Age 65 (Prefilled Syringe) 07/20/2022,07/07/2021,07/01/2020 Influenza (Generic) 06/04/2014,06/17/2013,2011 Influenza Adult (Generic) 06/04/2019,,06/23/2017,2015,06/11/2016,06/17/2015 Pneumococcal (Pneumovax 23) 02/26/2020 Pneumococcal (Prevnar 13) 08/29/2018,06/23/2017 Zoster (Zostavax) 60091 Unt/0.65Ml 10/29/2012 Family History Medical History Relation Comments Cancer Brother 1 hodgkins Hypertension Brother 1 Cancer Brother 2 lung Hypertension Brother 2 Cancer Brother 3 lung Hypertension Brother 3 Cancer Brother 4 lung Hypertension Brother 4 Diabetes Brother 5 Hypertension Brother 5 Hypertension Sister 1 Stroke Sister 1 Cancer Sister 2 pancreas Hypertension Sister 2 Hypertension Sister 3 Hypertension Sister 4 Relation Status Comments Brother 1 Brother 2 Brother 3 Brother 4 Brother 5 Alive Brother 6 Alive Sister 1 Sister 2 Sister 3 Alive Sister 4 Alive Social History Tobacco Use Types Packs/Day Years Used Date Smoking Tobacco: Former Cigarettes 0.1 40 1 - 1996 Passive Smoke Exposure: Past Smokeless Tobacco: Never Tobacco Cessation:Counseling Given: Not Answered Comments:Former, Quit 1996 Alcohol Use Standard Drinks/Week Comments Not Currently 0 (1 standard drink = 0.6 oz pur e alcohol) OASIS D0700: Social Isolation Answer Da te Recorded Frequency of experiencing loneliness or isolatio n Never 10/18/2022 OASIS A1250: Transportation Answer Date Recorded Lack of Transportation (Medical) No 10/18/2022 Lack of Transportation (Non-Medical) No 10/18/2022 Patient Unable or Declines to Respond No 10/18/2022 OASIS B1300: Health Literacy Answer Leandro e Recorded Frequency of needing help to read materials from doctor or pharmacy Never 10/18/2022 PHQ-2 Answer Date Recorded Patient Health Questionnaire-2 Score 0 04/10/2023 Sex and Gender Information Value Date Recorded Sex Assigned at Not on file Legal Sex Male 2:06 PM CDT Gender Identity Not on file Sexual Orientation Not on file Last Filed Vital Signs Vital Sign Reading Time Taken Comments Blood Pressure 142/63 09/14/2023 2:48 PM PARKING ENFORCEMENT MANAGER Pulse 83 09/14/2023 2:48 PM PARKING ENFORCEMENT MANAGER Temperature 36.7 C (98 F) 09/14/2023 2:48 PM PARKING ENFORCEMENT MANAGER Respiratory Rate 24 09/14/2023 2:48 PM PARKING ENFORCEMENT MANAGER Oxygen Saturation 96% 09/14/2023 2:48 PM PARKING ENFORCEMENT MANAGER Inhaled Oxygen Concentration - - Weight 83.9 kg (185 lb) 09/14/2023 2:48 PM PARKING ENFORCEMENT MANAGER Height 177.8 cm (5' 10 ) 09/14/2023 2:48 PM PARKING ENFORCEMENT MANAGER Body Mass Index 26.54 09/14/2023 2:48 PM PARKING ENFORCEMENT MANAGER Plan of Treatment Health Maintenance Due Date Last Done Comments DTaP, Tdap and Td Vaccines (1 - Tdap) 1959 Annual Medicare Wellness Visit 2003 Zoster Vaccines (2 of 3) 12/24/2012 10/29/2012 RSV Immunization or 60+ Years (1 - 1-dose 75+ series) 2013 COVID-19 Vaccine ( - season) 2024 02/09/2022, 07/06/2021, 11/10/2020, Additional history exists PHQ-2 (Physician [place]) 09/11/2024 04/10/2023 Pneumococcal Vaccine: 50+ Years Completed 02/26/2020, 08/29/2018, 06/23/2017 Meningococcal B Vaccine Aged Out No l onger eligible based on patient's age to complete this topic Meningococcal Vaccine Aged Out No susan valery eligible based on patient's age to complete this topic RSV Immunizations Under 20 Months Aged Out No longer eligible based on patient's age to complete this topic Goals Goal Patient Goal Type Associated Problems Recent Progress Patient-Stated? Author Family - family caregiver with be involved in care transitions and discharge planning Lifestyle No Bishnu Cid, RN Medical Devices Implanted Type Area Rotary Drill Operator Device Identifier Shelf Expiration Date Model / Serial / Lot Cup Acetabular Depuy 58mm - [id number] Implanted:Qty : 1 on 10/11/2022 by Steve Gomez MD at [facility] Hip Components Left: Hip DEPUY [id number] 07/11/2032 [id number] / / [id number] Liner Depuy Acetabular Altrx Neut 36x58 - [id number] Implanted:Qty : 1 on 10/11/2022 by Steve Gomez MD at [facility] Hip Components Left: Hip DEPUY [id number] 05/11/2024 [id number] / / [id number] Stem Femoral Collar Actis Duofix 6 Standard Offset Hip Sterile - [id number] Implanted:Qty : 1 on 10/11/2022 by Steve Gomez MD at [facility] Hip Components Left: Hip DEPUY [id number] 07/11/2032 [id number] / / [id number] Head Depuy Femoral Delta 36mm +5 - [id number] Implanted:Qty : 1 on 10/11/2022 by Steve Gomez MD at [facility] Hip Components Left: Hip DEPUY [id number] 08/10/2027 [id number] / / [id number] Screw Depuy Cancellous Bone 6.5mm X 25mm - [id number] Implanted:Qty : 2 on 10/11/2022 by Steve Gomez MD at [facility] Screw Left: Hip DEPUY [id number] 09/10/2032 [id number] / / [id number] Right Hip Insurance MEDICARE [facility] Advance Directives * Full Code (Latest Code Status on File) Date Activated Date Inactivated Comments 10/14/2022 10:29 AM 09/14/2023 2:39 PM * Full Code Date Activated Date Inactivated Comments 10/11/2022 11:14 AM 10/12/2022 7:20 PM Care Teams Central Aisle Cashier Relationship Specialty Start Date End Date Sharri Dumont PA [address] [place] [address] PCP - General PHYSICIAN GUSSET STITCHER 07/27/22
--- OUTSIDE RECORDS SUMMARY | 2025-01-10 08:13 | XMS_ITS | Clinical Summary ---
Author Organization [facility] [address] [facility] Address [address] [place] [address] Care Team Providers Care Plow Holder Name Role Phone Sharri Dumont Primary Care Provider [phone]- [phone] Allergies Active Allergy Reactions Criticality Noted Date [...] mg total) by mouth daily with breakfast 2024 Active budesonide-formot Etienne (SYMBICORT) 160-4.5 mcg/actuation inhalerIndication s:Pulmonary emphysema, unspecified emphysema type (HCC) USE 2 INHALATIONS TWICE A DAY. RINSE MOUTH WITH WATER AFTER USE, DO NOT SWALLOW 30.6 g 3 024 Active albuterol HFA (PROVENTIL HFA,VENTOLIN HFA,PROAIR HFA) 90 mcg/actuation inhalerIndication s:Pulmonary emphysema, unspecified emphysema type (HCC) Inhale 2 puffs every 6 (six) hours as needed for wheezing 025 Active olmesartan (BENICAR) 40 mg tabletIndications :Essential hypertension TAKE 1 TABLET DAILY 100 tablet 1 025 Active atorvastatin (LIPITOR) 10 mg tabletIndications :Mixed hyperlipidemia TAKE 1 TABLET DAILY 100 tablet 1 04/17/2 025 Active levothyroxine (SYNTHROID) 75 mcg tablet [...] Planning surgery with Dr. Rashid Fry of [facility]. Scheduled for July 20 and August 21. [...] well Assessment & Plan (08/10/2023 11:09 PM DYNAMITE PACKING MACHINE OPERATOR): COPD is stable. Continue the Symbicort and p.r.n. albuterol Assessment & Plan (07/07/2023 12:48 PM CDT): COPD is stable. Continue with albuterol p.r.n. and Symbicort as instructed Assessment & Plan (01/17/2023 9:47 PM CDT): Continue Symbicort and albuterol p.r.n. Assessment & Plan (07/20/2022 1:54 PM DYNAMITE PACKING MACHINE OPERATOR): Continue Symbicort. Assessment & Plan (07/10/2021 8:36 PM CDT): Continue Symbicort. History of total right hip arthroplasty 12/29/19 21 Overview (12/28/2020): 2014 History of colon polyps 12/30/2018 Overview (07/10/2021): 01/2018 - Dr. Rm at [facility]. Polyp. Repeat 2020. Assessment & Plan (07/20/2022 1:53 PM DYNAMITE PACKING MACHINE OPERATOR): 01/2018 - Dr. Rm at [facility]. Polyp. Repeat 2020-- Dr. Rm -- will have to request from [facility]. Assessment & Plan (07/10/2021 8:34 PM CDT): 01/2018 - Dr. Rm at [facility]. Polyp. Repeat 2020. Prefers to go to Dr. Brandt at [place]. Referral is in so he can contact our office at his convenience. Assessment & Plan (01/17/2021 6:47 PM CDT): Due to repeat screening. Refer to Dr. Brandt as patients just saw him. Assessment & Plan (08/09/2020 2:04 PM DYNAMITE PACKING MACHINE OPERATOR): Due to repeat in 01/2021 Type 2 diabetes mellitus with hyperlipidemia Assessment & Plan (12/16/2024 12:03 AM CDT): Stressed importance of continued A1c control to minimize the marine oil terminal superintendent effects of diabetes. Bring accuchecks to office [...] of continued A1c control to minimize the marine oil terminal superintendent effects of diabetes. Bring accuchecks to office when instructed to do so. Check A1c about every 3-6 months. Take medication as prescribed. Get annual eye exam. Encouraged RAFI/Statin if able to tolerate. Encouraged weight control and encouraged diabetic diet and exercise. Continue metformin 501 daily Assessment & Plan (08/10/2023 11:09 PM DYNAMITE PACKING MACHINE OPERATOR): Encouraged patient to follow low fat/low chol [...] atorvastatin Assessment & Plan (07/20/2022 1:53 PM DYNAMITE PACKING MACHINE OPERATOR): Encouraged patient to follow low fat/low chol [...] statin Assessment & Plan (08/09/2020 2:03 PM DYNAMITE PACKING MACHINE OPERATOR): Encouraged patient to follow fat/low chol diet [...] labs. Assessment & Plan (08/10/2023 11:09 PM DYNAMITE PACKING MACHINE OPERATOR): Continue levothyroxine. Monitor labs. Assessment & Plan (07/07/2023 12:48 PM CDT): TSH is stable. Continue levothyroxine 75 mcg daily Assessment & Plan (01/17/2023 9:47 PM CDT): Continue levothyroxine. Monitor labs. Assessment & Plan (07/20/2022 1:53 PM DYNAMITE PACKING MACHINE OPERATOR): Continue levothyroxine. Monitor labs. Assessment & Plan (01/31/2022 11:15 PM CDT): Continue levothyroxine. Monitor labs. Assessment & Plan (07/10/2021 8:35 PM CDT): Continue levothyroxine. Monitor labs. Assessment & Plan (01/17/2021 6:46 PM CDT): Continue levothyroxine. Monitor labs Assessment & Plan (08/09/2020 2:03 PM DYNAMITE PACKING MACHINE OPERATOR): Continue levothyroxine. Labs are stable. Assessment & [...] 06/16/2024 Assessment & Plan (10/02/2023 8:25 PM DYNAMITE PACKING MACHINE OPERATOR): Patient had a COPD exacerbation. Required an [...] 06/16/2024 Assessment & Plan (08/10/2023 11:12 PM DYNAMITE PACKING MACHINE OPERATOR): Encouraged healthy lifestyle, good nutrition and exercise. Encouraged Calcium and Vitamin D and weight bearing exercise for bone health. Reviewed immunizations. Reviewed age appropirate screenings. Medicare Wellness Documentation is completed within the chart Fatigue 08/10/2023 12/16/2024 Assessment & Plan (08/10/2023 11:12 PM DYNAMITE PACKING MACHINE OPERATOR): Probably multifactorial. Check labs and followup to re-evaluate BMI 29.0-29.9,adult 07/07/2023 06/03/20 24 Assessment & Plan (10/02/2023 8:22 PM DYNAMITE PACKING MACHINE OPERATOR): Weight/BMI is in healthy range. Continue healthy lifestyle to maintain. Assessment & Plan (07/24/2023 11:21 AM DYNAMITE PACKING MACHINE OPERATOR): Weight/BMI is in healthy range. Continue healthy [...] 01/17/2023 Assessment & Plan (07/20/2022 1:54 PM DYNAMITE PACKING MACHINE OPERATOR): Encouraged healthy lifestyle, good nutrition and exercise. Encouraged Calcium and Vitamin D and weight bearing exercise for bone health. Reviewed immunizations. Reviewed age appropirate screenings. Medicare Wellness Documentation is completed within the chart Need for vaccination 07/20/2022 Assessment & Plan (07/20/2022 1:54 PM DYNAMITE PACKING MACHINE OPERATOR): Flu vaccine updated in the office today BMI 28.0-28.9,adult 01/17/2022 01/18/20 Assessment & Plan (07/20/2022 1:54 PM DYNAMITE PACKING MACHINE OPERATOR): Weight/BMI is in healthy range. Continue healthy lifestyle to maintain. Assessment & Plan (01/17/2022 3:14 PM CDT): Weight/BMI is in healthy range. Continue healthy lifestyle to maintain. Flank pain, acute 09/07/2021 07/07/2023 Assessment & Plan (09/07/2021 7:19 PM DYNAMITE PACKING MACHINE OPERATOR): Will evaluate further with xrays, will notify [...] back to Ortho. BMI 28.0-28.9,adult 12/28/2020 07/07/20 Assessment & Plan (12/28/2020 10:51 AM CDT): Weight/BMI is in healthy range. Continue healthy lifestyle to maintain. Flu vaccine need 08/09/2020 07/07/2023 Assessment & Plan (07/20/2022 1:53 PM DYNAMITE PACKING MACHINE OPERATOR): Flu vaccine updated in the office today Assessment & Plan (07/10/2021 8:35 PM CDT): Vaccine updated in office today Assessment & Plan (08/09/2020 2:04 PM DYNAMITE PACKING MACHINE OPERATOR): Updated in office today Other emphysema (CMS/HCC) 03/08/2020 Assessment & Plan (07/10/2021 8:35 PM CDT): Continue Symbicort. Assessment & Plan (01/17/2021 6:46 PM CDT): Breathing without difficulty. monitor Assessment & Plan (08/09/2020 2:03 PM DYNAMITE PACKING MACHINE OPERATOR): Continue Symbicort. States never has break thru [...] 21 Assessment & Plan (08/09/2020 2:03 PM DYNAMITE PACKING MACHINE OPERATOR): Weight/BMI is in healthy range. Continue healthy [...] 01/25/2024 Assessment & Plan (08/10/2023 11:09 PM DYNAMITE PACKING MACHINE OPERATOR): Pre-diabetes/hyperglycemia is a precursor to Dm. Stressed [...] diabetes. Assessment & Plan (07/20/2022 1:53 PM DYNAMITE PACKING MACHINE OPERATOR): Pre-diabetes/hyperglycemia is a precursor to Dm. Stressed [...] diabetes. Assessment & Plan (08/09/2020 2:03 PM DYNAMITE PACKING MACHINE OPERATOR): Pre-diabetes is a precursor to Dm. Stressed [...] 40 Assessment & Plan (08/10/2023 11:09 PM DYNAMITE PACKING MACHINE OPERATOR): Bp is stable/in acceptable range for any [...] olmesartan Assessment & Plan (07/20/2022 1:53 PM DYNAMITE PACKING MACHINE OPERATOR): Bp is stable/in acceptable range for any [...] olmesartan Assessment & Plan (08/09/2020 2:03 PM DYNAMITE PACKING MACHINE OPERATOR): Bp is stable/in acceptable range for any [...] sodium intake and exercise for weight control. Encounters Date Type Department Care Team Description 12/04/2024 1:00 PM CDT Office Visit [facility] [address] [address] Sharri Dumont PA Medicare annual wellness visit, subsequent (Primary Dx); Hypertension associated with diabetes (HCC); Pulmonary emphysema, unspecified emphysema type (HCC); Acquired hypothyroidism; Type 2 diabetes mellitus with hyperlipidemia (HCC); BMI 26.0-26.9,adult 11/23/2024 Results Follow-Up [address] [place] [address] Sharri Dumont PA 11/14/2024 Orders Only [address] [place] [address] Sharri Dumont PA Essential hypertension (Primary Dx); Hypertension associated with diabetes (HCC); Acquired hypothyroidism; Type 2 diabetes mellitus with hyperlipidemia (HCC); Other fatigue; Encounter for Medicare annual wellness exam from Last 3 Months Immunizations Immunization Administration Dates Next Due Influenza, Quadrivalent, Hig h Dose, Preservative Free, Intrr 07/07/2023,07/20/2022,07/07/2021,07/01 Influenza, Quadrivalent, Spl it, Intramuscular 06/11/2016 Influenza, Quadrivalent, Spl it, Preservative Free, Intramuscular 06/17/2015 Influenza, Trivalent, High D ose, Split, Preservative Free, Intramuscular 06/19/2024,06/04/2019,07/03/2018,06/23,06/23/2016 Influenza, Trivalent, IM (MDV) 06/04/2014,2012,07/03/2012 Influenza, Unspecified 06/04/2019,2017,06/23/2017,06/23,06/11/2016,06/17/2015,06/04/2014 ,06/17/2013,07/03/2012 Pneumococcal Conjugate PCV 13 08/29/2018, 017 Pneumococcal Polysaccharide PPV23 02/26/2020 ZOSTER LIVE 10/29/2012 Surgical History Surgery Date Site/Laterality Comments APPENDECTOMY 09/11/1952 - 09/10/1953 TOTAL HIP ARTHROPLASTY 09/11/2013 - 09/10/2014 Right HEMORROIDECTOMY 09/11/1977 - 09/10/1978 CHOLECYSTECTOMY 09/11/2007 - 09/10/2008 COLONOSCOPY W/ BIOPSIES 09/11/2011 - 09/10/2012 EYE SURGERY Left Cataract surgery Medical History Medical History Date Comments Lung nodule HTN (hypertension) Family History Medical History Relation Name Comments Emphysema Mother Tuberculosis Mother Relation Name Status Comments Father Mother Social History Tobacco Use Types Packs/Day Years [...] on file Legal Sex Male 8:42 PM DYNAMITE PACKING MACHINE OPERATOR Gender Identity Not on file Sexual Orientation Not on file Occupation Industry Job Start Date Job End Date Retired Not on file Not on file Not on file Obstetrics History Last Filed Vital Signs Vital Sign Reading [...] 12/04/2024 1:01 PM CDT Plan of Treatment Health Maintenance Due Date Last Done Comments Dilated Eye Exam 1940 Foot Exam 1940 DTaP/Tdap/Td Vaccine (1 - Tdap) 1949 Hepatitis B Screening 02/18[birth year]1956 Zoster Vaccine (2 of 3) 12/24/2012 10/29/2012 Covid-19 Vaccine (5 - 2024- 5 season) 2024 02/09/2022, 07/06/2021, 11/10/2020, Additional history exists Hemoglobin A1C 05/25/2025 11/22/2024, 05/13, 01/15/2024, Additional history exists Albumin Creatinine Ratio, Urine 11/22/2025 , 06/04/2024 Lipid Panel 11/22/2025 11/22/2024, 05/0 02/2024, 01/09/2023, Additional history exists eGFR 11/22/2025 11/22/2024, 05/0 02/2024, 01/09/2023, Additional history exists Depression Screening 12/04/2025 12/04/2024, 06/03/2024, 09/21/2023, Additional history exists Fall Risk Assessment 12/04/2025 12/04/2024, 09/21/2023, 07/24/2023, Additional history exists Well Visit 65+ 12/04/2025 12/04/2024, 07/12, 07/20/2022, Additional history exists Colon Cancer Screening-Colonoscopy 03/03/20262020, 01/26/2018 Pneumococcal vaccine 65+ Completed 020, 08/29/2018, 06/23/2017 Influenza Vaccine Completed 06/19/2024, , 07/20/2022, Additional history exists Procedures Procedure Name Priority Date/Time Associated Diagnosis [...] with auto differential (11/22/2024 9:14 AM CDT) WBC 5.0 3.8 - 10.8 Thousand/u L [...] LAB BLOOD ORDERABLES Final Result [facility] [address] [place] [address] * Albumin Creatinine Ratio, Urine (11/22/2024 9:14 [...] 2:47 AM CDT FASTING:YES FASTING: YES Sharri RAEDR LAB URINE ORDERABLES Final Result [facility] [address] [address] * TSH (11/22/2024 9:14 AM CDT) TSH 2.13 0.40 - 4.50 mIU/L [facility] Blood 11/22/2024 9:14 AM CDT 11/22/2024 9:15 AM CDT Narrative [facility] - 11/23/2024 2:47 AM CDT FASTING:YES FASTING: YES Sharri RADER LAB BLOOD ORDERABLES Final Result Performing Organization Address [facility] de Phone Number [facility] [address] [place] [address] * (ABNORMAL) Hemoglobin A1c (11/22/2024 9:14 AM CDT) Hgb A1C 6.3(H) <5.7 % of total Hgb [facility] Comment: For someone without known diabetes, a [...] BLOOD ORDERABLES Final Result Performing Organization Address [facility] Co de Phone Number [facility] [address] [place] [address] * Lipid panel (11/22/2024 9:14 AM CDT) Cholesterol 145 <200 mg/dL [facility] HDL 50 > OR = 40 mg/dL [facility] Triglycerides 93 <150 mg/dL [facility] LDL 77 mg/dL (calc) [facility] Comment: Reference range: <100 Desirable range <100 mg/dL for primary prevention; <70 mg/dL for patients with CHD or diabetic patients with > or = 2 CHD risk factors. LDL-C is now calculated using the Maikel calculation, which is a validated novel method providing better accuracy than the Friedewald equation in the estimation of LDL-C. Justyn SAGASTUME et al. LELA. 2013;310(19): 3124-4553 (http://education.WoofRadar/faq/NTH022) Chol/HDL ratio 2.9 <5.0 (calc) [facility] Non-HDL, (LDL+VLDL) 95 <130 mg/dL (calc) [facility] Comment: For patients with diabetes plus 1 major ASCVD risk factor, treating to a non-HDL-C goal of <100 mg/dL (LDL-C of <70 mg/dL) is considered a therapeutic option. Blood 11/22/2024 9:14 AM CDT 11/22/2024 9:15 AM CDT Narrative [facility] - 11/23/2024 2:47 AM CDT FASTING:YES FASTING: YES Sharri RADER LAB BLOOD ORDERABLES Final Result [facility] [address] [place] [address] * (ABNORMAL) Comprehensive metabolic panel (11/22/2024 9:14 AM CDT) [facility] Glucose 125(H) 65 - 99 mg/dL [facility] Comment: Fasting reference interval For someone without known diabetes, a glucose value between 100 and 125 mg/dL is consistent with prediabetes and should be confirmed with a follow-up test. BUN 24 7 - 25 mg/dL [facility] Creatinine 1.19 0.70 - 1.22 mg/dL [facility] eGFR 59(L) > OR = 60 mL/min/1.7 3m2 [facility] BUN/creat ratio SEE NOTE: 6 - 22 (calc) [facility] Comment: Not Reported: BUN and Creatinine are within reference range. Sodium 142 135 - 146 mmol/L [facility] Potassium, pl 4.8 3.5 - 5.3 mmol/L [facility] Chloride 107 98 - 110 mmol/L [facility] CO2 29 20 - 32 mmol/L [facility] Calcium 9.5 8.6 - 10.3 mg/dL [facility] Protein, sr 7.2 6.1 - 8.1 g/dL [facility] Albumin 4.4 3.6 - 5.1 g/dL [facility] GLOBULIN 2.8 1.9 - 3.7 g/dL (calc) [facility] Alb/glob ratio 1.6 1.0 - 2.5 (calc) [facility] Bilirubin, total 0.7 0.2 - 1.2 mg/dL [facility] Alk phos 58 35 - 144 U/L [facility] AST 17 10 - 35 U/L [facility] ALT (SGPT) 14 9 - 46 U/L [facility] Blood 11/22/2024 9:14 AM CDT 11/22/2024 9:15 AM CDT Narrative [facility] - 11/23/2024 2:47 AM CDT FASTING:YES FASTING: YES Sharri RADER LAB BLOOD ORDERABLES Final Result [facility] [address] [place] [address] * (ABNORMAL) COLONOSCOPY (03/03/2021) us Ernesto Rm MD HEALTH MAINTENANCE Edited Result - Final from Last 3 Months or Most Recently Relevant to Health Maintenance Insurance MEDICARE MEDICARE [facility] Care Teams Plow Holder Relationship Specialty Start Date End Date Sharri Dumont PA [address] [place] [address] PCP - General Internal Medicine 12/26/18
--- OUTSIDE RECORDS SUMMARY | 2025-01-10 08:13 | XMS_ITS | Continuity of Care Document ---
Author Organization [facility]erg[facility] with [facility] Address [address] [place] [address] Phone Care Team Providers Care Vegetable Cook Name Role Phone Feroz Mehta Unavailable Unavailable Procedures Procedure Date Eye Exam & Treatment Refraction Eye Exam, New Patient No Script Refraction Advance Directives Directive Yes / No Effective Date File Name No Information Encounters Encounter Description Practice Location Reason(s) For Visit Diagnoses Date Provider Providers Copied on Encounter [facility], [address], [place], [place], [id number], [place] tel:[phone] [facility] No Information 6-201 0 Janine Redman. [address] [facility] , [address], [place], [place], [facility], [place]. tel:[phone] [facility], [address] [place] [address] [address], [place], [place], [id number], [place] tel:[phone] [facility] No Information 7[address] [facility] [address], [place], [address], [place]. tel:[phone] Family History Family Member Type Diagnosis Age At Onset No Information Payers Payer name Insurance type Covered libertarian ID Authoriza tion(s) Medicare [facility] [id number] [facility] [id number] Social History Type Description Quantity Date Captured Comments Sex Male Smoking Status No Information Chief Complaint And Reason For Visit No Information Reason For Referral Reason For Referral No Information History Of Present Illness Encounter Date Complaint History Of Prese nt Illness No Information Functional Status Date Functional Assessmen t No Information Instructions Date Instruction Additional Infor mation No Information Assessments Type Assessment Date No Information Patient Care Teams Name Effective Dates (start - stop) Status Members No Information
--- OUTSIDE RECORDS SUMMARY | 2025-01-10 08:13 | XMS_ITS | Encounter Summary ---
Author Organization [facility] Care Team Providers Care Kinesiologist Name Role Phone Sharri Dumont Primary Care Provider [phone] Encounter Details Date Type Department Care Team (Latest Contact Info) Description 01/19/2018 Orders Only [facility] Provider, MD Christel [address] [place] [address] Social History Tobacco Use Types Packs/Day Years Used Date Smoking Tobacco: Never Assessed Sex and Gender Information Value Date Recorded Sex Assigned at Not on file Legal Sex Male 8:42 PM WINDING INSPECTOR Gender Identity Not on file Sexual Orientation Not on file documented as of this encounter Plan of Treatment Not on file documented as of this encounter Procedures Procedure Name Priority Date/Time Associated Diagnosis Comments COLONOSCOPY - SCAN 09/19/2018 12 :00 AM WINDING INSPECTOR documented in this encounter Results * COLONOSCOPY - SCAN (09/19/2018 12:00 AM WINDING INSPECTOR) Narrative 09/19/2018 12:00 AM WINDING INSPECTOR Ordered by an unspecified provider. Historical Provider Final Res ult documented in this encounter Visit Diagnoses Not on filedocumented in this encounter Care Teams Kinesiologist Relationship Specialty Start Date End Date Sharri Dumont PA [address] [place] [address] PCP - General Internal Medicine 12/26/18 documented as of this encounter
--- OUTSIDE RECORDS SUMMARY | 2025-01-10 08:14 | XMS_ITS | CONTINUITY OF CARE DOCUMENT ---
Author Name shruti bahena Address Unknown Organization [facility] Address [address] [place] [address] Phone [phone] Care Team Providers Care Primary School Teacher Name Role Phone DEMETRI KEENE MD Unavailable [phone] INSURANCE PROVIDERS Payer name Policy type / Coverage type [place] red libertarian [place] MEDICARE Medicare [id number] [facility] [employer] [id number]
--- OUTSIDE RECORDS SUMMARY | 2025-01-10 08:14 | XMS_ITS | Encounter Summary ---
Author Organization [facility] Address [address] [place] [address] Care Team Providers Care Poultry Hatchery Laborer Name Role Phone Sharri Dumont Primary Care Provider [phone]- [phone] Encounter Details Date Type Department Care Team (Late st Contact Info) Description 11/23/2024 Results Follow-Up [facility] Family Medicine [address] [place] [address] Sharri Dumont PA [address] [place] [address] Social History Tobacco Use Types Packs/Day Years Used Date Smoking Tobacco: Former Smokeless Tobacco: Never Alcohol Use Standard Drinks/Week Comments Never 0 (1 standard drink = 0.6 oz pur e alcohol) AUDIT-C Answer Date Recorded Q1: How often do you have a drink containing alc ohol? Never 09/21/2023 Average Number of Drinks Not on file 024 Q3: How often do you have si x or more drinks on one occasion? Never 09/21/2023 PHQ-2 Answer Date Recorded PHQ-2 Total Score (If total score is 3 or more points, staff should administer the PHQ-9) 0 06/03/2024 Sex and Gender Information Value Date Recorded Sex Assigned at Not on file Legal Sex Male 8:42 PM CODING QUALITY ANALYST Gender Identity Not on file Sexual Orientation Not on file Occupation Industry Job Start Date Job End Date Retired Not on file Not on file Not on file documented as of this encounter Plan of Treatment Not on file documented as of this encounter Visit Diagnoses Not on filedocumented in this encounter Care Teams Poultry Hatchery Laborer Relationship Specialty Start Date End Date Sharri Dumont PA [address] [facility] [address] [place] [address] PCP - General Internal Medicine 12/26/18 documented as of this encounter
--- NOTE | 2025-01-10 08:18 | ED.ABDPAIN ---
HPI - Abdominal Pain General Chief Complaint: Abdominal Pain Stated Complaint: constipation Time Seen by Provider: 01/10/25 08:16 History of Present Illness HPI narrative: Pt says he feel like he has fecal impaction in rectum. Pt feels stool there but can't get it out. Pt had large BM yesterday. Pt denies abdominal pain. Pt dug out feces himself yesterday. Related Data Home Medications ?Medication ?Instructions ?Recorded ?Confirmed ?Last Taken ?Type atorvastatin 10 mg tablet 04/19/21 Unknown History levothyroxine 50 mcg tablet 04/19/21 Unknown History (Synthroid) olmesartan 40 mg tablet 04/19/21 Unknown History Allergies Allergy/AdvReac Type Severity Reaction Status Date / Time codeine AdvReac Mild Other Verified 04/19/21 18:51 Review of Systems Review of Systems: All systems reviewed & are unremarkable except as noted in HPI and below PMFSH Past Medical History Medical History (Updated 01/10/25 @ 09:30 by Haroon Pierre III, DO) Hyperlipidemia Hypertension Surgical History Surgical History (Updated 04/19/21 @ 23:37 by Alvina Lynn MD) History of cholecystectomy History of appendectomy Social History Social History (Updated 04/19/21 @ 23:38 by Alvina Lynn MD) Smoking status: Former smoker Exam Const: General: healthy appearing and no acute distress Nutritional Appearance: well nourished Orientation/consciousness: patient oriented x3 Limitations: no limitations Resp: Effort & Inspection: normal respiratory effort Auscultation: clear to auscultation bilaterally Cardio: Rate: regular rate Rhythm: regular rhythm GI: GI Palp: Yes Soft to palpation and No Tenderness to palpation present (GI) Auscultation: normal bowel sounds Rectal Exam: No fecal impaction and hemorrhoids Other: no stool in rectum, Skin: General skin exam: normal color Rashes: no rashes Wounds: no wounds Neuro: General: patient oriented x3, moves all extremities and no focal motor deficits Speech: normal speech Extrem: General: normal to inspection and no clubbing, cyanosis or edema Psych: Mental Status: mental status grossly normal Affect: normal affect Attitude: cooperative Course Vital Signs Vital signs: Vital Signs Temperature 97.7 F 01/10/25 08:12 Pulse Rate 89 01/10/25 08:12 Respiratory Rate 18 01/10/25 08:12 Blood Pressure 144/77 H 01/10/25 08:12 Pulse Oximetry 96 01/10/25 08:12 Oxygen Delivery Room Air 01/10/25 08:12 Temperature 97.7 F 01/10/25 08:12 Pulse Rate 89 01/10/25 08:12 Respiratory Rate 18 01/10/25 08:12 Blood Pressure 144/77 H 01/10/25 08:12 Pulse Oximetry 96 01/10/25 08:12 Oxygen Delivery Room Air 01/10/25 08:12 MDM - Abdominal Pain MDM Narrative Medical decision making narrative: pt has feeling of rectal obstruction but no fecal impaction noted on exam. will get labs and CT abd pelvis to rule out tumor or mass. labd unremarkable. proctocolitis on ct. will put on cipro and prednisone Lab Data 01/10/25 08:32 01/10/25 08:43 Labs: Lab Results 01/10/25 01/10/25 Range/Units 08:32 08:43 WBC 7.8 (4.5-10.0) K/mm3 RBC 3.68 L (4.6-6.20) M/mm3 Hgb 11.6 L (14.0-18.0) g/dL Hct 36.1 L (42.0-52.0) % MCV 98.1 (80-100) fl MCH 31.5 (26-34) pg MCHC 32.1 (32-36) g/dl RDW 13.3 (11.5-14.5) % Plt Count 175 (150-375) k/mm3 MPV 10.0 (7.4-10.4) fl Immature Gran % (Auto) 0.4 (0-0.5) % Neut % (Auto) 71.6 (45.5-73.1) % Lymph % (Auto) 16.8 L (18.3-44.2) % Carolina % (Auto) 9.4 H (2.6-8.5) % Eos % (Auto) 1.4 (0-4.4) % Baso % (Auto) 0.4 (0.2-1.2) % Lymph # (Auto) 1.32 (0.9-3.2) K/mm3 Carolina # (Auto) 0.7 H (0.1-0.6) K/mm3 Eos # (Auto) 0.1 (0-0.3) K/mm3 Baso # (Auto) 0.0 (0.0-0.1) K/mm3 Abs Immat Gran (auto) 0.03 (0.00-0.031) K/mm3 Absolute Neuts (auto) 5.6 (1.3-6.7) K/mm3 Absolute Nucleated RBC 0.000 (0.0-0.012) K/mm3 Nucleated RBC % 0.0 (0.0-0.2) % PT 14.1 (11.1-14.7) Seconds INR 1.1 APTT 28.3 (22.3-36.8) Seconds Sodium 138 (137-145) mmol/L Potassium 4.2 (3.4-5.0) mmol/L Chloride 105 (98-107) mmol/L Carbon Dioxide 25 (22-30) mmol/L Anion Gap 8 (4-12) mmol/L BUN 22 H (9-20) mg/dL Creatinine 1.21 1.40 (0.7-1.3) mg/dL Estim Creat Clear Calc 40 35 ml/min Estimated GFR 57 L 48 L (59 - ) Glucose 146 H (65-110) mg/dL Calcium 9.4 (8.4-10.2) mg/dL Total Bilirubin 1.1 (0.2-1.3) mg/dL AST 26 (17-59) U/L ALT 20 (6-50) U/L Alkaline Phosphatase 58 (38-126) U/L Total Protein 7.0 (6.3-8.2) g/dL Albumin 4.3 (3.5-5.1) g/dL Lipase 87 (23-300) U/L Imaging Data Radiologist's impression: ITS Impressions Abdomen/Pelvis CT 01/10/25 08:57 IMPRESSION: 1. Proctocolitis which could be infectious or inflammatory in etiology. 2. Emphysema with chronic bibasilar atelectasis/scarring and mild bronchiectatic changes. 3. Diverticulosis. 4. Bladder stones. 5. Prostatomegaly. Discharge Plan Discharge Clinical Impression: Proctocolitis Patient Disposition: Home Condition: Stable Instructions: Antibiotic Form, Proctitis (ED) Patient Language: Tamazight Prescriptions: New ciprofloxacin HCl [Cipro] 500 mg tablet 500 mg PO Q12H Qty: 20 0RF prednisone 50 mg tablet 50 mg PO DAILY Qty: 5 0RF No Action atorvastatin 10 mg tablet levothyroxine [Synthroid] 50 mcg tablet olmesartan 40 mg tablet doxycycline monohydrate 100 mg tablet 100 mg PO BID Qty: 14 0RF Follow-up/Referrals: Julia,PRASANTH Harrell [Primary Care Provider] -
[2025-01-10 08:43] LABS: Estimated CRCL calculation 35 ml/min; Estimated Glomerular Filt Rate 48
[2025-01-10 08:46] LABS: Alanine Aminotransferase 20 U/L (6-50); Albumin Level 4.3 g/dL (3.5-5.1); Alkaline Phosphatase 58 U/L (38-126); Anion Gap 8 mmol/L (4-12); Aspartate Amino Transferase 26 U/L (17-59); Basophils Percent Auto 0.4 % (0.2-1.2); Bilirubin,Total 1.1 mg/dL (0.2-1.3); Blood Urea Nitrogen 22 mg/dL (9-20); Calcium 9.4 mg/dL (8.4-10.2); Carbon Dioxide 25 mmol/L (22-30); Chloride 105 mmol/L (98-107); Eosinophils Absolute Auto 0.1 K/mm3 (0-0.3); Eosinophils Percent Auto 1.4 % (0-4.4); Estimated CRCL calculation 40 ml/min; Estimated Glomerular Filt Rate 57; Glucose 146 mg/dL (65-110); Hematocrit 36.1 % (42.0-52.0); Hemoglobin 11.6 g/dL (14.0-18.0); INR 1.1; Immature Granulocyte Absolute 0.03 K/mm3 (0.00-0.031); Immature Granulocyte Percent A 0.4 % (0-0.5); Lipase 87 U/L (23-300); Lymphocytes Absolute Auto 1.32 K/mm3 (0.9-3.2); Lymphocytes Percent Auto 16.8 % (18.3-44.2); Mean Corpuscular HGB Conc 32.1 g/dl (32-36); Mean Corpuscular Hemoglobin 31.5 pg (26-34); Mean Corpuscular Volume 98.1 fl (80-100); Monocytes Absolute Auto 0.7 K/mm3 (0.1-0.6); Monocytes Percent Auto 9.4 % (2.6-8.5); Neutrophils Absolute Auto 5.6 K/mm3 (1.3-6.7); Neutrophils Percent Auto 71.6 % (45.5-73.1); Platelet Count Result 175 k/mm3 (150-375); Potassium 4.2 mmol/L (3.4-5.0); Prothrombin Time 14.1 Seconds (11.1-14.7); Red Blood Count 3.68 M/mm3 (4.6-6.20); Red Cell Distribution Width 13.3 % (11.5-14.5); Sodium 138 mmol/L (137-145); White Blood Count 7.8 K/mm3 (4.5-10.0)
[2025-01-10 08:47] LABS: Partial Thromboplastin Time 28.3 Seconds (22.3-36.8)
--- OUTSIDE RECORDS SUMMARY | 2025-01-11 11:14 | XMS_ITS | Encounter Summary ---
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
--- OUTSIDE RECORDS SUMMARY | 2025-01-11 11:14 | XMS_ITS | Clinical Summary ---
Author Organization [facility] Address [facility] [place] [address] Care Team Providers Care Sr. Vendor Management Associate Name Role Phone Sharri Dumont Primary Care Provider [phone] Allergies Active Allergy Reactions Criticality Noted Date Comments Codeine Nausea and Vomiting 12/31/2018 Rufe like stomach was burning and vomitted Medications [...] 02/26/2020 Pneumococcal (Prevnar 13) 08/29/2018,06/23/2017 Zoster (Zostavax) 89108 Unt/0.65Ml 10/29/2012 Family History Medical History Relation [...] Comments Blood Pressure 142/63 09/14/2023 2:48 PM ALTERATION TAILOR Pulse 83 09/14/2023 2:48 PM ALTERATION TAILOR Temperature 36.7 C (98 F) 09/14/2023 2:48 PM ALTERATION TAILOR Respiratory Rate 24 09/14/2023 2:48 PM ALTERATION TAILOR Oxygen Saturation 96% 09/14/2023 2:48 PM ALTERATION TAILOR Inhaled Oxygen Concentration - - Weight 83.9 kg (185 lb) 09/14/2023 2:48 PM ALTERATION TAILOR Height 177.8 cm (5' 10 ) 09/14/2023 2:48 PM ALTERATION TAILOR Body Mass Index 26.54 09/14/2023 2:48 PM ALTERATION TAILOR Plan of Treatment Health Maintenance Due Date Last Done Comments DTaP, Tdap and Td Vaccines (1 - Tdap) 1959 Annual Medicare Wellness Visit 2003 Zoster Vaccines (2 of 3) 12/24/2012 10/29/2012 RSV Immunization or 60+ Years (1 - 1-dose 75+ series) 2013 COVID-19 Vaccine ( - season) 2024 02/09/2022, 07/06/2021, 11/10/2020, Additional history exists PHQ-2 (Physician [place]) 09/11/2024 04/10/2023 Pneumococcal Vaccine: 50+ Years Completed [...] Cid, RN Medical Devices Implanted Type Area Bedspread Inspector Device Identifier Shelf Expiration Date Model / Serial / Lot Cup Acetabular Depuy 58mm - [id number] Implanted:Qty : 1 on 10/11/2022 by Steve Gomez MD at [facility] Hip Components Left: Hip DEPUY [id number] 07/11/2032 [id number] / / [id number] Liner Depuy Acetabular Altrx Neut 36x58 - [id number] Implanted:Qty : 1 on 10/11/2022 by Steve Gomez MD at [facility] Hip Components Left: Hip DEPUY [id number] 05/11/2024 [id number] / / [id number] Stem Femoral Collar Actis Duofix 6 Standard Offset Hip Sterile - [id number] Implanted:Qty : 1 on 10/11/2022 by Steve Gomez MD at [facility] Hip Components Left: Hip DEPUY [id number] 07/11/2032 [id number] / / [id number] Head Depuy Femoral Delta 36mm +5 - [id number] Implanted:Qty : 1 on 10/11/2022 by Steve Gomez MD at [facility] Hip Components Left: Hip DEPUY [id number] 08/10/2027 [id number] / / [id number] Screw Depuy Cancellous Bone 6.5mm X 25mm - [id number] Implanted:Qty : 2 on 10/11/2022 by Steve Gomez MD at [facility] Screw Left: Hip DEPUY [id number] 09/10/2032 [id number] / / [id number] Right Hip Insurance MEDICARE [facility] Advance Directives * Full Code (Latest Code Status on File) Date Activated Date Inactivated Comments 10/14/2022 10:29 AM 09/14/2023 2:39 PM * Full Code Date Activated Date Inactivated Comments 10/11/2022 11:14 AM 10/12/2022 7:20 PM Care Teams Sr. Vendor Management Associate Relationship Specialty Start Date End Date Sharri Dumont PA [address] [place] [address] PCP - General PHYSICIAN EQUIPMENT APPLICATION SPECIALIST 07/27/22
--- OUTSIDE RECORDS SUMMARY | 2025-01-11 11:14 | XMS_ITS | Clinical Summary ---
Author Organization [facility] [place] [address] [facility] Address [address] [place] [address] Care Team Providers Care Manufacturing Engineering Manager Name Role Phone Sharri Dumont Primary Care Provider [phone] Allergies Active Allergy Reactions Criticality Noted Date [...] Planning surgery with Dr. Rashid [facility] of [facility]. Scheduled for July 20 and August 21. [...] well Assessment & Plan (08/10/2023 11:09 PM SPEED READING TEACHER): COPD is stable. Continue the Symbicort and p.r.n. albuterol Assessment & Plan (07/07/2023 12:48 PM CDT): COPD is stable. Continue with albuterol p.r.n. and Symbicort as instructed Assessment & Plan (01/17/2023 9:47 PM CDT): Continue Symbicort and albuterol p.r.n. Assessment & Plan (07/20/2022 1:54 PM SPEED READING TEACHER): Continue Symbicort. Assessment & Plan (07/10/2021 8:36 PM CDT): Continue Symbicort. History of total right hip arthroplasty 12/29/19 21 Overview (12/28/2020): 2014 History of colon polyps 12/30/2018 Overview (07/10/2021): 01/2018 - Dr. Rm at [facility]. Polyp. Repeat 2020. Assessment & Plan (07/20/2022 1:53 PM SPEED READING TEACHER): 01/2018 - Dr. Rm at [facility]. Polyp. Repeat 2020-- Dr. Rm -- will have to request from [facility]. Assessment & Plan (07/10/2021 8:34 PM CDT): 01/2018 - Dr. Rm at [facility]. Polyp. Repeat 2020. Prefers to go to Dr. Brandt at [place]. Referral is in so he can contact our office at his convenience. Assessment & Plan (01/17/2021 6:47 PM CDT): Due to repeat screening. Refer to Dr. Brandt as patients just saw him. Assessment & Plan (08/09/2020 2:04 PM SPEED READING TEACHER): Due to repeat in 01/2021 Type 2 diabetes mellitus with hyperlipidemia Assessment & Plan (12/16/2024 12:03 AM CDT): Stressed importance of continued A1c control to minimize the rat exterminator effects of diabetes. Bring accuchecks to office [...] of continued A1c control to minimize the rat exterminator effects of diabetes. Bring accuchecks to office when instructed to do so. Check A1c about every 3-6 months. Take medication as prescribed. Get annual eye exam. Encouraged RAFI/Statin if able to tolerate. Encouraged weight control and encouraged diabetic diet and exercise. Continue metformin 501 daily Assessment & Plan (08/10/2023 11:09 PM SPEED READING TEACHER): Encouraged patient to follow low fat/low chol [...] atorvastatin Assessment & Plan (07/20/2022 1:53 PM SPEED READING TEACHER): Encouraged patient to follow low fat/low chol [...] statin Assessment & Plan (08/09/2020 2:03 PM SPEED READING TEACHER): Encouraged patient to follow fat/low chol diet [...] labs. Assessment & Plan (08/10/2023 11:09 PM SPEED READING TEACHER): Continue levothyroxine. Monitor labs. Assessment & Plan (07/07/2023 12:48 PM CDT): TSH is stable. Continue levothyroxine 75 mcg daily Assessment & Plan (01/17/2023 9:47 PM CDT): Continue levothyroxine. Monitor labs. Assessment & Plan (07/20/2022 1:53 PM SPEED READING TEACHER): Continue levothyroxine. Monitor labs. Assessment & Plan (01/31/2022 11:15 PM CDT): Continue levothyroxine. Monitor labs. Assessment & Plan (07/10/2021 8:35 PM CDT): Continue levothyroxine. Monitor labs. Assessment & Plan (01/17/2021 6:46 PM CDT): Continue levothyroxine. Monitor labs Assessment & Plan (08/09/2020 2:03 PM SPEED READING TEACHER): Continue levothyroxine. Labs are stable. Assessment & [...] 06/16/2024 Assessment & Plan (10/02/2023 8:25 PM SPEED READING TEACHER): Patient had a COPD exacerbation. Required an [...] 06/16/2024 Assessment & Plan (08/10/2023 11:12 PM SPEED READING TEACHER): Encouraged healthy lifestyle, good nutrition and exercise. Encouraged Calcium and Vitamin D and weight bearing exercise for bone health. Reviewed immunizations. Reviewed age appropirate screenings. Medicare Wellness Documentation is completed within the chart Fatigue 08/10/2023 12/16/2024 Assessment & Plan (08/10/2023 11:12 PM SPEED READING TEACHER): Probably multifactorial. Check labs and followup to re-evaluate BMI 29.0-29.9,adult 07/07/2023 06/03/20 24 Assessment & Plan (10/02/2023 8:22 PM SPEED READING TEACHER): Weight/BMI is in healthy range. Continue healthy lifestyle to maintain. Assessment & Plan (07/24/2023 11:21 AM SPEED READING TEACHER): Weight/BMI is in healthy range. Continue healthy [...] 01/17/2023 Assessment & Plan (07/20/2022 1:54 PM SPEED READING TEACHER): Encouraged healthy lifestyle, good nutrition and exercise. Encouraged Calcium and Vitamin D and weight bearing exercise for bone health. Reviewed immunizations. Reviewed age appropirate screenings. Medicare Wellness Documentation is completed within the chart Need for vaccination 07/20/2022 Assessment & Plan (07/20/2022 1:54 PM SPEED READING TEACHER): Flu vaccine updated in the office today BMI 28.0-28.9,adult 01/17/2022 01/18/20 Assessment & Plan (07/20/2022 1:54 PM SPEED READING TEACHER): Weight/BMI is in healthy range. Continue healthy lifestyle to maintain. Assessment & Plan (01/17/2022 3:14 PM CDT): Weight/BMI is in healthy range. Continue healthy lifestyle to maintain. Flank pain, acute 09/07/2021 07/07/2023 Assessment & Plan (09/07/2021 7:19 PM SPEED READING TEACHER): Will evaluate further with xrays, will notify [...] 07/07/2023 Assessment & Plan (07/20/2022 1:53 PM SPEED READING TEACHER): Flu vaccine updated in the office today Assessment & Plan (07/10/2021 8:35 PM CDT): Vaccine updated in office today Assessment & Plan (08/09/2020 2:04 PM SPEED READING TEACHER): Updated in office today Other emphysema (CMS/HCC) 03/08/2020 Assessment & Plan (07/10/2021 8:35 PM CDT): Continue Symbicort. Assessment & Plan (01/17/2021 6:46 PM CDT): Breathing without difficulty. monitor Assessment & Plan (08/09/2020 2:03 PM SPEED READING TEACHER): Continue Symbicort. States never has break thru [...] 21 Assessment & Plan (08/09/2020 2:03 PM SPEED READING TEACHER): Weight/BMI is in healthy range. Continue healthy [...] 01/25/2024 Assessment & Plan (08/10/2023 11:09 PM SPEED READING TEACHER): Pre-diabetes/hyperglycemia is a precursor to Dm. Stressed [...] diabetes. Assessment & Plan (07/20/2022 1:53 PM SPEED READING TEACHER): Pre-diabetes/hyperglycemia is a precursor to Dm. Stressed [...] diabetes. Assessment & Plan (08/09/2020 2:03 PM SPEED READING TEACHER): Pre-diabetes is a precursor to Dm. Stressed [...] 40 Assessment & Plan (08/10/2023 11:09 PM SPEED READING TEACHER): Bp is stable/in acceptable range for any [...] olmesartan Assessment & Plan (07/20/2022 1:53 PM SPEED READING TEACHER): Bp is stable/in acceptable range for any [...] olmesartan Assessment & Plan (08/09/2020 2:03 PM SPEED READING TEACHER): Bp is stable/in acceptable range for any [...] Description 12/04/2024 1:00 PM CDT Office Visit [facility] [address] [address] Sharri Dumont PA Medicare annual wellness visit, subsequent (Primary Dx); Hypertension associated with diabetes (HCC); Pulmonary emphysema, unspecified emphysema type (HCC); Acquired hypothyroidism; Type 2 diabetes mellitus with hyperlipidemia (HCC); BMI 26.0-26.9,adult 11/23/2024 Results Follow-Up [address] [place] [address] Sharri Dumont PA 11/14/2024 Orders Only [address] [place] [address] Sharri Dumont PA Essential hypertension [...] on file Legal Sex Male 8:42 PM SPEED READING TEACHER Gender Identity Not on file Sexual Orientation [...] ORDERABLES Final Result [facility] [address] [place] [address] * Albumin Creatinine Ratio, Urine (11/22/2024 9:14 [...] LAB URINE ORDERABLES Final Result [facility] [address] [address] * TSH (11/22/2024 9:14 AM CDT) TSH 2.13 0.40 - 4.50 mIU/L [facility] Blood 11/22/2024 9:14 AM CDT 11/22/2024 9:15 AM CDT Narrative [facility] - 11/23/2024 2:47 AM CDT FASTING:YES FASTING: YES Sharri RADER LAB BLOOD ORDERABLES Final Result Performing Organization Address [facility] de Phone Number [facility] [address] [place] [address] * (ABNORMAL) Hemoglobin A1c (11/22/2024 9:14 AM CDT) Hgb A1C 6.3(H) <5.7 % of total Hgb [facility] Comment: For someone without known diabetes, [...] BLOOD ORDERABLES Final Result Performing Organization Address [facility] Co de Phone Number [facility] [address] [place] [address] * Lipid panel (11/22/2024 9:14 AM CDT) Cholesterol 145 <200 mg/dL [facility] HDL 50 > OR = 40 mg/dL [facility] Triglycerides 93 <150 mg/dL [facility] LDL 77 mg/dL (calc) [facility] Comment: Reference range: <100 Desirable range <100 mg/dL for primary prevention; <70 mg/dL for patients with CHD or diabetic patients with > or = 2 CHD risk factors. LDL-C is now calculated using the Maikel calculation, which is a validated novel method providing better accuracy than the Friedewald equation in the estimation of LDL-C. Justyn SAGASTUME et al. LELA. 2013;310(19): 9714-3207 (http://education.[employer]faq/EFV864) Chol/HDL ratio 2.9 <5.0 (calc) [facility] Non-HDL, (LDL+VLDL) 95 <130 mg/dL (calc) Ketan [facility] Comment: For patients with diabetes plus 1 major ASCVD risk factor, treating to a non-HDL-C goal of <100 mg/dL (LDL-C of <70 mg/dL) is considered a therapeutic option. Blood 11/22/2024 9:14 AM CDT 11/22/2024 9:15 AM CDT Narrative [facility] - 11/23/2024 2:47 AM CDT FASTING:YES FASTING: YES Sharri RADER LAB BLOOD ORDERABLES Final Result [facility] [address] [place] [address] * (ABNORMAL) Comprehensive metabolic panel (11/22/2024 9:14 AM CDT) [facility] Glucose 125(H) 65 - 99 mg/dL [...] Sodium 142 135 - 146 mmol/L Ketan [facility] Potassium, pl 4.8 3.5 - 5.3 mmol/L [facility] Chloride 107 98 - 110 mmol/L [facility] [...] ALT (SGPT) 14 9 - 46 U/L [facility] Blood 11/22/2024 9:14 AM CDT 11/22/2024 9:15 AM CDT Narrative [facility] - 11/23/2024 2:47 AM CDT FASTING:YES FASTING: YES Sharri RADER LAB BLOOD ORDERABLES Final Result [facility] [address] [place] [address] * (ABNORMAL) COLONOSCOPY (03/03/2021) us Ernesto Rm MD HEALTH MAINTENANCE Edited Result - Final from Last 3 Months or Most Recently Relevant to Health Maintenance Insurance MEDICARE MEDICARE [facility] OOS Care Teams Manufacturing Engineering Manager Relationship Specialty Start Date End Date Sharri Dumont PA [address] [place] [address] PCP - General Internal Medicine 12/26/18
--- OUTSIDE RECORDS SUMMARY | 2025-01-11 11:14 | XMS_ITS | Encounter Summary ---
Author Organization 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 Historical Provider Final Res ult documented in this encounter Visit Diagnoses Not on filedocumented in this encounter Care Teams Aircrewman Relationship Specialty Start Date End Date Sharri Dumont PA [address] [place] [address] PCP - General Internal Medicine 12/26/18 documented as of this encounter
--- OUTSIDE RECORDS SUMMARY | 2025-01-11 11:15 | XMS_ITS | Encounter Summary ---
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
--- OUTSIDE RECORDS SUMMARY | 2025-01-11 11:15 | XMS_ITS | Referral Summary ---
Author Organization [address] Address [address] [place] [id number] Care Team Providers Care Hydroelectric Plant Electrician Name Role Phone Sharri Dumont Primary Care Provider [phone]- [phone] Encounters Date Type Department Care Team Description 12/04/2024 1:00 PM CDT Office Visit [address] [address] Sharri Dumont PA Medicare annual wellness visit, subsequent (Primary Dx); Hypertension associated with diabetes (HCC); Pulmonary emphysema, unspecified emphysema type (HCC); Acquired hypothyroidism; Type 2 diabetes mellitus with hyperlipidemia (HCC); BMI 26.0-26.9,adult 11/23/2024 Results Follow-Up [address] [place] [phone] Sharri Dumont PA 11/14/2024 Orders Only [address] [place] [phone] Sharri Dumont PA Essential hypertension (Primary [...] Planning surgery with Dr. Rashid Fry of [facility]. Scheduled for July 20 and August [...] well Assessment & Plan (08/10/2023 11:09 PM OVERHEAD DISTRIBUTION ENGINEER): COPD is stable. Continue the Symbicort and p.r.n. albuterol Assessment & Plan (07/07/2023 12:48 PM CDT): COPD is stable. Continue with albuterol p.r.n. and Symbicort as instructed Assessment & Plan (01/17/2023 9:47 PM CDT): Continue Symbicort and albuterol p.r.n. Assessment & Plan (07/20/2022 1:54 PM OVERHEAD DISTRIBUTION ENGINEER): Continue Symbicort. Assessment & Plan (07/10/2021 8:36 PM CDT): Continue Symbicort. History of total right hip arthroplasty 12/29/19 Overview (12/28/2020): 2014 History of colon polyps 12/30/2018 Overview (07/10/2021): 01/2018 - Dr. Rm at [facility]. Polyp. Repeat 2020. Assessment & Plan (07/20/2022 1:53 PM OVERHEAD DISTRIBUTION ENGINEER): 01/2018 - Dr. Rm at [facility]. Polyp. Repeat 2020. 2020-- Dr. Rm -- will have to request from [facility]. Assessment & Plan (07/10/2021 8:34 PM CDT): 01/2018 - Dr. Rm at [facility]. Polyp. Repeat 2020. Prefers to go to Dr. Brandt at [facility]. Referral is in so he can contact our office at his convenience. Assessment & Plan (01/17/2021 6:47 PM CDT): Due to repeat screening. Refer to Dr. Brandt as patients just saw him. Assessment & Plan (08/09/2020 2:04 PM OVERHEAD DISTRIBUTION ENGINEER): Due to repeat in 01/2021 Type 2 diabetes mellitus with hyperlipidemia Assessment & Plan (12/16/2024 12:03 AM CDT): Stressed importance of continued A1c control to minimize the mcfp effects of diabetes. Bring accuchecks to office [...] of continued A1c control to minimize the mcfp effects of diabetes. Bring accuchecks to office when instructed to do so. Check A1c about every 3-6 months. Take medication as prescribed. Get annual eye exam. Encouraged RAFI/Statin if able to tolerate. Encouraged weight control and encouraged diabetic diet and exercise. Continue metformin 501 daily Assessment & Plan (08/10/2023 11:09 PM OVERHEAD DISTRIBUTION ENGINEER): Encouraged patient to follow low fat/low chol [...] atorvastatin Assessment & Plan (07/20/2022 1:53 PM OVERHEAD DISTRIBUTION ENGINEER): Encouraged patient to follow low fat/low chol [...] statin Assessment & Plan (08/09/2020 2:03 PM OVERHEAD DISTRIBUTION ENGINEER): Encouraged patient to follow fat/low chol diet [...] labs. Assessment & Plan (08/10/2023 11:09 PM OVERHEAD DISTRIBUTION ENGINEER): Continue levothyroxine. Monitor labs. Assessment & Plan (07/07/2023 12:48 PM CDT): TSH is stable. Continue levothyroxine 75 mcg daily Assessment & Plan (01/17/2023 9:47 PM CDT): Continue levothyroxine. Monitor labs. Assessment & Plan (07/20/2022 1:53 PM OVERHEAD DISTRIBUTION ENGINEER): Continue levothyroxine. Monitor labs. Assessment & Plan (01/31/2022 11:15 PM CDT): Continue levothyroxine. Monitor labs. Assessment & Plan (07/10/2021 8:35 PM CDT): Continue levothyroxine. Monitor labs. Assessment & Plan (01/17/2021 6:46 PM CDT): Continue levothyroxine. Monitor labs Assessment & Plan (08/09/2020 2:03 PM OVERHEAD DISTRIBUTION ENGINEER): Continue levothyroxine. Labs are stable. Assessment & [...] 06/16/2024 Assessment & Plan (10/02/2023 8:25 PM OVERHEAD DISTRIBUTION ENGINEER): Patient had a COPD exacerbation. Required an [...] 06/16/2024 Assessment & Plan (08/10/2023 11:12 PM OVERHEAD DISTRIBUTION ENGINEER): Encouraged healthy lifestyle, good nutrition and exercise. Encouraged Calcium and Vitamin D and weight bearing exercise for bone health. Reviewed immunizations. Reviewed age appropirate screenings. Medicare Wellness Documentation is completed within the chart Fatigue 08/10/2023 12/16/2024 Assessment & Plan (08/10/2023 11:12 PM OVERHEAD DISTRIBUTION ENGINEER): Probably multifactorial. Check labs and followup to re-evaluate BMI 29.0-29.9,adult 07/07/2023 06/03/20 Assessment & Plan (10/02/2023 8:22 PM OVERHEAD DISTRIBUTION ENGINEER): Weight/BMI is in healthy range. Continue healthy lifestyle to maintain. Assessment & Plan (07/24/2023 11:21 AM OVERHEAD DISTRIBUTION ENGINEER): Weight/BMI is in healthy range. Continue healthy [...] 01/17/2023 Assessment & Plan (07/20/2022 1:54 PM OVERHEAD DISTRIBUTION ENGINEER): Encouraged healthy lifestyle, good nutrition and exercise. Encouraged Calcium and Vitamin D and weight bearing exercise for bone health. Reviewed immunizations. Reviewed age appropirate screenings. Medicare Wellness Documentation is completed within the chart Need for vaccination 07/20/2022 023 Assessment & Plan (07/20/2022 1:54 PM OVERHEAD DISTRIBUTION ENGINEER): Flu vaccine updated in the office today BMI 28.0-28.9,adult 01/17/2022 01/18/20 23 Assessment & Plan (07/20/2022 1:54 PM OVERHEAD DISTRIBUTION ENGINEER): Weight/BMI is in healthy range. Continue healthy lifestyle to maintain. Assessment & Plan (01/17/2022 3:14 PM CDT): Weight/BMI is in healthy range. Continue healthy lifestyle to maintain. Flank pain, acute 09/07/2021 07/07/2023 Assessment & Plan (09/07/2021 7:19 PM OVERHEAD DISTRIBUTION ENGINEER): Will evaluate further with xrays, will notify [...] 07/07/2023 Assessment & Plan (07/20/2022 1:53 PM OVERHEAD DISTRIBUTION ENGINEER): Flu vaccine updated in the office today Assessment & Plan (07/10/2021 8:35 PM CDT): Vaccine updated in office today Assessment & Plan (08/09/2020 2:04 PM OVERHEAD DISTRIBUTION ENGINEER): Updated in office today Other emphysema ([facility]/HCC) 03/08/2020 Assessment & Plan (07/10/2021 8:35 PM CDT): Continue Symbicort. Assessment & Plan (01/17/2021 6:46 PM CDT): Breathing without difficulty. monitor Assessment & Plan (08/09/2020 2:03 PM OVERHEAD DISTRIBUTION ENGINEER): Continue Symbicort. States never has break thru [...] 21 Assessment & Plan (08/09/2020 2:03 PM OVERHEAD DISTRIBUTION ENGINEER): Weight/BMI is in healthy range. Continue healthy [...] 01/25/2024 Assessment & Plan (08/10/2023 11:09 PM OVERHEAD DISTRIBUTION ENGINEER): Pre-diabetes/hyperglycemia is a precursor to Dm. Stressed [...] diabetes. Assessment & Plan (07/20/2022 1:53 PM OVERHEAD DISTRIBUTION ENGINEER): Pre-diabetes/hyperglycemia is a precursor to Dm. Stressed [...] diabetes. Assessment & Plan (08/09/2020 2:03 PM OVERHEAD DISTRIBUTION ENGINEER): Pre-diabetes is a precursor to Dm. Stressed [...] 40 Assessment & Plan (08/10/2023 11:09 PM OVERHEAD DISTRIBUTION ENGINEER): Bp is stable/in acceptable range for any [...] olmesartan Assessment & Plan (07/20/2022 1:53 PM OVERHEAD DISTRIBUTION ENGINEER): Bp is stable/in acceptable range for any [...] olmesartan Assessment & Plan (08/09/2020 2:03 PM OVERHEAD DISTRIBUTION ENGINEER): Bp is stable/in acceptable range for any [...] on file Legal Sex Male 8:42 PM OVERHEAD DISTRIBUTION ENGINEER Gender Identity Not on file Sexual Orientation [...] auto differential (11/22/2024 9:14 AM CDT) Pathologist [facility] WBC 5.0 3.8 - 10.8 [...] BLOOD ORDERABLES Final Result [facility] [address] [place] [address] * Albumin Creatinine Ratio, Urine (11/22/2024 9:14 [...] LAB URINE ORDERABLES Final Result [facility] [address] [address] * TSH (11/22/2024 9:14 AM CDT) TSH 2.13 0.40 - 4.50 mIU/L [facility] Blood 11/22/2024 9:14 AM CDT 11/22/2024 9:15 AM CDT Narrative [facility] - 11/23/2024 2:47 AM CDT FASTING:YES FASTING: YES us Sharri RADER LAB BLOOD ORDERABLES Final Result Performing Organization Address [facility] de Phone Number [facility] [address] [place] [address] * (ABNORMAL) Hemoglobin A1c (11/22/2024 9:14 AM CDT) Hgb A1C 6.3(H) <5.7 % of total Hgb [facility] Comment: For someone without known diabetes, [...] BLOOD ORDERABLES Final Result Performing Organization Address [facility] de Phone Number [facility] [address] [place] [address] * Lipid panel (11/22/2024 9:14 AM CDT) Cholesterol 145 <200 mg/dL [facility] HDL 50 > OR = 40 mg/dL [facility] Triglycerides 93 <150 mg/dL [facility] LDL 77 mg/dL (calc) [facility] Comment: Reference range: <100 Desirable range <100 mg/dL for primary prevention; <70 mg/dL for patients with CHD or diabetic patients with > or = 2 CHD risk factors. LDL-C is now calculated using the Maikel calculation, which is a validated novel method providing better accuracy than the Friedewald equation in the estimation of LDL-C. Justyn SAGASTUME et al. LELA. 2013;310(19): 9544-6634 (http://education.Ebuzzing and Teads/faq/WFC592) Chol/HDL ratio 2.9 <5.0 (calc) [facility] Non-HDL, (LDL+VLDL) 95 <130 mg/dL (calc) [facility] Comment: For patients with diabetes plus 1 major ASCVD risk factor, treating to a non-HDL-C goal of <100 mg/dL (LDL-C of <70 mg/dL) is considered a therapeutic option. Blood 11/22/2024 9:14 AM CDT 11/22/2024 9:15 AM CDT Narrative [facility] - 11/23/2024 2:47 AM CDT FASTING:YES FASTING: YES Sharri RADER LAB BLOOD ORDERABLES Final Result [facility] [address] [place] [address] * (ABNORMAL) Comprehensive metabolic panel (11/22/2024 9:14 AM CDT) [facility] Glucose 125(H) 65 - 99 mg/dL Ketan Greer Comment: Fasting reference interval For someone without known diabetes, a glucose value between 100 and 125 mg/dL is consistent with prediabetes and should be confirmed with a follow-up test. BUN 24 7 - 25 mg/dL [facility] Greer Creatinine 1.19 0.70 - 1.22 mg/dL [facility] eGFR 59(L) > OR = 60 mL/min/1.7 3m2 [facility] BUN/creat ratio SEE NOTE: 6 - [...] ALT (SGPT) 14 9 - 46 U/L [facility] Blood 11/22/2024 9:14 AM CDT 11/22/2024 9:15 AM CDT Narrative [facility] - 11/23/2024 2:47 AM CDT FASTING:YES FASTING: YES Sharri RADER LAB BLOOD ORDERABLES Final Result [facility] [address] [place] [address] * (ABNORMAL) COLONOSCOPY (03/03/2021) Ernesto Rm MD HEALTH MAINTENANCE Edited Result - Final from Last 3 Months or Most Recently Relevant to Health Maintenance Insurance MEDICARE MEDICARE [facility] OOS Care Teams Hydroelectric Plant Electrician Relationship Specialty Start Date End Date Sharri Dumont PA [address] [place] [address] PCP - General Internal Medicine 12/26/18
--- OUTSIDE RECORDS SUMMARY | 2025-01-11 11:15 | XMS_ITS | Continuity of Care Document ---
Author Organization [facility] Address [address] [facility] [address] [place] [address] Phone Care Team Providers Care Publication Director Name Role Phone Feroz Mehta Unavailable Unavailable Procedures Procedure Date Eye Exam & Treatment Refraction Eye Exam, New Patient No Script Refraction Advance Directives Directive Yes / No Effective Date File Name No Information Encounters Encounter Description Practice Location Reason(s) For Visit Diagnoses Date Provider Providers Copied on Encounter [facility], [address], [place], [place], [id number], [place] tel:[phone] [facility] No Information 6-201 0 Janine Redman. [address] [facility] , [address], [place], [place], [facility], [place]. tel:[phone] [facility], [address] [place] [address] [address], [place], [place], [id number], [place] tel:[phone] [facility] No Information 7-[address] [facility] [address], [place], [address], [place]. tel:[phone] Family History Family Member Type Diagnosis Age At Onset No Information Payers Payer name Insurance type Covered democrat ID Authoriza tion(s) Medicare [facility] [id number] [facility] [id number] Social History Type Description Quantity Date Captured [...]
--- OUTSIDE RECORDS SUMMARY | 2025-01-11 11:15 | XMS_ITS | CONTINUITY OF CARE DOCUMENT ---
Author Name shruti bahena Address Unknown Organization [facility] Address [address] [facility] [address] [place] [address] Phone [phone] Care Team Providers Care Completions Engineer Name Role Phone DEMETRI KEENE MD Unavailable INSURANCE PROVIDERS Payer name Policy type / Coverage type Ferdinand red green party ID [place] MED[place] Medicare [id number] [facility] [employer] [id number]
== END 2025-01-10 09:51 | disposition home or self-care (01) ==
PROVIDERS: Emergency Provider Emergency Medicine; PCP Physician Assistant
DX: K51.30 Ulcerative (chronic) rectosigmoiditis without complications (principal); I10 Essential (primary) hypertension; E78.5 Hyperlipidemia, unspecified; Z90.49 Acquired absence of other specified parts of digestive tract; Z87.891 Personal history of nicotine dependence; J43.9 Emphysema, unspecified; K57.90 Diverticulosis of intestine, part unspecified, without perforation or abscess without bleeding; N21.0 Calculus in bladder; N40.0 Benign prostatic hyperplasia without lower urinary tract symptoms
CPT/HCPCS: 36415; 74177; 80053; 83690; 85025; 85610; 85730; 99284; Q9967